=== PATIENT | male | born 1990 | race African-American/Black ===

== ENCOUNTER 2017-10-09 03:30 | Emergency (ER) | payer OTHER, SELFPAY ==
--- NOTE | 2017-10-09 04:29 | ER ---
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 I went to bed tonight and I thought the pain would get better but it didn't and now my arm is swollen. Swelling noted to right forearm. Pulses present. Transition of care: patient was not received from another setting of care. Onset of symptoms was October 08, 2017 at 15:00. Initial Sepsis Screen: Does the patient meet any 2 criteria? No. Patient's initial sepsis screen is negative. Does the patient have a suspected source of infection? No. Patient's initial sepsis screen is negative. Care prior to arrival: None. 03:45 Method Of Arrival: Ambulatory tl2 03:45 Acuity: BECKY 4 tl2 Triage Assessment: 03:47 General: Appears in no apparent distress. comfortable, Behavior is calm, cooperative, tl2 appropriate for age. Pain: Complains of pain in right forearm Pain radiates to right arm Pain currently is 4 out of 10 on a pain scale. Quality of pain is described as throbbing. Neuro: Level of Consciousness is awake, alert, obeys commands, Oriented to person, place, time, situation. Respiratory: Airway is patent Respiratory effort is even, unlabored, Respiratory pattern is regular, symmetrical. Musculoskeletal: Circulation, motion, and sensation intact. Capillary refill < 3 seconds, Range of motion: limited in right wrist Swelling present in right forearm. Musculoskeletal: Injury Description: Deformity sustained to right forearm. Historical: - Allergies: 03:47 No Known Allergies; tl2 - Home Meds: 03:47 None [Active]; tl2 - PMHx: 03:47 Anxiety; tl2 - Immunization history:: Adult Immunizations up to date, Last tetanus immunization: up to date. - Social history:: Smoking status: Patient uses tobacco products, smokes one-half pack cigarettes per day. - Family history:: not pertinent. Screenin:49 Abuse screen: Denies threats or abuse. Nutritional screening: No deficits noted. tl2 Tuberculosis screening: No symptoms or risk factors identified. Fall Risk None identified. Assessment: 03:49 General: see triage assessment. tl2 04:46 Reassessment: Patient appears in no apparent distress at this time. Patient and/or tl2 family updated on plan of care and expected duration. Pain level reassessed. Patient is alert, oriented x 3, equal unlabored respirations, skin warm/dry/pink. Pt verbalized understanding of discharge instructions, need for follow up and prescription usage. Vital Signs: 03:47 BP 129 / 85; Pulse 83; Resp 18; Pulse Ox 100% on R/A; Weight 68.04 kg; Height 6 ft. 0 tl2 in. (182.88 cm); Pain 4/10; 04:46 BP 115 / 74; Pulse 83; Resp 18; Pulse Ox 99% on R/A; tl2 03:47 Body Mass Index 20.34 (68.04 kg, 182.88 cm) tl2 ED Course: 03:34 Patient arrived in ED. 03:37 Car Ferreira MD is Attending Physician. ma2 03:44 Sasha Beach RN is Primary Nurse. tl2 03:46 Triage completed. tl2 03:47 Arm band placed on right wrist. tl2 03:49 Patient has correct armband on for positive identification. Bed in low position. Call tl2 light in reach. Side rails up X 1. Adult w/ patient. 04:31 X-ray completed. Portable x-ray completed in exam room. Patient tolerated procedure jw2 well. 04:36 XRAY Wrist RIGHT 3 view In Process Unspecified. EDMS 04:46 No provider procedures requiring assistance completed. Patient did not have IV access tl2 during this emergency room visit. comfort wrist splint. Administered Medications: No medications were administered Outcome: 04:29 Discharge ordered by . ma2 04:46 Discharged to home ambulatory, with friend. tl2 04:46 Condition: stable 04:46 Discharge instructions given to patient, Instructed on discharge instructions, follow up and referral plans. no driving heavy equipment, medication usage, Demonstrated understanding of instructions, follow-up care, medications, Prescriptions given X 1. 04:48 Patient left the ED. tl2 Signatures: Dispatcher [employer] EDMS Erum Bellamy Jenni jw2 Beach, Sasha, RN RN tl2 Alzahri, Mohammad, MD MD ma2
--- NOTE | 2017-10-09 04:29 | EDPHYS ---
Physician Documentation [facility] Name: Laurent Mahmood Age: 27 yrs Sex: Male : 1990 Arrival Date: 10/09/2017 Time: 03:34 Bed 13 Private MD: ED Physician Car Ferreira HPI: 10/09 03:59 This 27 yrs old Black Male presents to ER via Ambulatory with complaints of Arm Injury. ma2 03:59 The complaints affect the right wrist. Onset: The symptoms/episode began/occurred ma2 gradually, 1 day(s) ago. Associated signs and symptoms: Pertinent negatives: decreased range of motion, deformity, fever, pain, tingling, warmth. Severity of symptoms: At their worst the symptoms were moderate. has right wrist pain x 2 days no trauma. Historical: - Allergies: 03:47 No Known Allergies; tl2 - Home Meds: 03:47 None [Active]; tl2 - PMHx: 03:47 Anxiety; tl2 - Immunization history:: Adult Immunizations up to date, Last tetanus immunization: up to date. - Social history:: Smoking status: Patient uses tobacco products, smokes one-half pack cigarettes per day. - Family history:: not pertinent. ROS: 03:59 Constitutional: Negative for fever, chills, and weight loss, Eyes: Negative for injury, ma2 pain, redness, and discharge, ENT: Negative for injury, pain, and discharge, Cardiovascular: Negative for chest pain, palpitations, and edema, Respiratory: Negative for shortness of breath, cough, wheezing, and pleuritic chest pain, Abdomen/GI: Negative for abdominal pain, nausea, diarrhea, and constipation, Back: Negative for injury and pain, : Negative for injury, bleeding, discharge, and swelling, Skin: Negative for injury, rash, and discoloration, Neuro: Negative for headache, weakness, numbness, tingling, and seizure, Psych: Negative for depression, anxiety, suicide ideation, homicidal ideation, and hallucinations, Allergy/Immunology: Negative for hives, rash, and allergies, Endocrine: Negative for neck swelling, polydipsia, polyuria, polyphagia, and marked weight changes, Hematologic/Lymphatic: Negative for swollen nodes, abnormal bleeding, and unusual bruising. 03:59 MS/extremity: Positive for pain, Negative for acute changes, swelling, tingling. Exam: 03:59 Constitutional: This is a well developed, well nourished patient who is awake, alert, ma2 and in no acute distress. Head/Face: Normocephalic, atraumatic. Eyes: Pupils equal round and reactive to light, extra-ocular motions intact. Lids and lashes normal. Conjunctiva and sclera are non-icteric and not injected. Cornea within normal limits. Periorbital areas with no swelling, redness, or edema. Respiratory: Lungs have equal breath sounds bilaterally, clear to auscultation and percussion. No rales, rhonchi or wheezes noted. No increased work of breathing, no retractions or nasal flaring. Abdomen/GI: Soft, non-tender, with normal bowel sounds. No distension or tympany. No guarding or rebound. No evidence of tenderness throughout. Skin: Warm, dry with normal turgor. Normal color with no rashes, no lesions, and no evidence of cellulitis. Neuro: Awake and alert, GCS 15, oriented to person, place, time, and situation. Cranial nerves II-XII grossly intact. Motor strength 5/5 in all extremities. Sensory grossly intact. Cerebellar exam normal. Normal gait. 03:59 Musculoskeletal/extremity: Extremities: noted in the right arm: pain, right distal radius , ROM: intact in all extremities, Circulation is intact in all extremities. Sensation intact. Compartment Syndrome exam of affected extremity: is normal. Vital Signs: 03:47 BP 129 / 85; Pulse 83; Resp 18; Pulse Ox 100% on R/A; Weight 68.04 kg; Height 6 ft. 0 tl2 in. (182.88 cm); Pain 4/10; 04:46 BP 115 / 74; Pulse 83; Resp 18; Pulse Ox 99% on R/A; tl2 03:47 Body Mass Index 20.34 (68.04 kg, 182.88 cm) tl2 MDM: 03:37 Patient medically screened. ma2 03:59 Differential diagnosis: dislocation, closed fracture, contusion, abrasion, tendonitis. ma2 04:28 Data reviewed: vital signs, nurses notes, radiologic studies. Counseling: I had a ma2 detailed discussion with the patient and/or guardian regarding: the historical points, exam findings, and any diagnostic results supporting the discharge/admit diagnosis, radiology results, the need for outpatient follow up. 10/09 03:58 Order name: XRAY Wrist RIGHT 3 view ma2 10/09 04:48 Order name: Wrist Splint; Complete Time: 04:48 tl2 Administered Medications: No medications were administered Disposition: 10/09/17 04:29 Discharged to Home. Impression: Muscle spasm. - Condition is Stable. - Prescriptions for Tylenol- Codeine #3 300-30 mg Oral Tablet - take 2 tablet by ORAL route every 6 hours As needed; 30 tablet. - Work release form, Medication Reconciliation Form, Thank You Letter, Antibiotic Education, Prescription Opioid Use form. - Follow up: Private Physician; When: Tomorrow; Reason: Continuance of care. - Problem is new. - Symptoms are unchanged. Signatures: Dispatcher [employer] Sasha Plaza RN RN tl2 Car Ferreira MD MD ma2
--- NOTE | 2017-10-09 11:40 | RAD REPORT ---
EXAM DESCRIPTION: RAD - Wrist Right 3 View - 10/09/2017 4:36 am CLINICAL HISTORY: Pain and swelling. COMPARISON: None. FINDINGS: No fracture or dislocation seen. No foreign body or other soft tissue abnormality. IMPRESSION: Negative examination.
== END 2017-10-09 04:48 | disposition home or self-care (01) ==
LOC: ER 03:30
DX: M62.838 Other muscle spasm (principal)
CPT/HCPCS: 99283

== ENCOUNTER 2019-07-31 14:33 | Emergency (ER) | payer SELFPAY ==
[2019-07-31 16:14] LABS: Absolute Lymphocytes (CBC) 0.8 K/uL (0.7-4.9); Basophils % 0.8 % (0-1.3); Hematocrit 45.9 % (39.6-49.0); Lymphocytes % 10.1 % (15.3-44.8); MPV 10.5 fL (7.6-11.3); RBC Red Blood Cell Count 5.31 M/uL (4.33-5.43)
[2019-07-31] MEDS ORDERED: NA CHLORIDE 0.9% 1,000 ML ONE (16:27)
[2019-07-31 16:30] LABS: Urine Blood NEGATIVE (NEG); Urine Glucose NEGATIVE (NEG); Urine Protein NEGATIVE (NEG); Urine Specific Gravity 1.015 (1.005-1.030)
[2019-07-31 16:36] LABS: ALT/SGPT 38 U/L (12-78); AST/SGOT 27 U/L (15-37); Alkaline Phosphatase 62 U/L (45-117); BUN Blood Urea Nitrogen 9 mg/dL (7-18); Bicarbonate 30 mmol/L (21-32); Bilirubin Direct 0.1 mg/dL (0-0.2); Bilirubin Total 0.4 mg/dL (0.2-1.0); Glucose Level 88 mg/dL (74-106); Lipase 121 U/L (73-393); Potassium 3.9 mmol/L (3.5-5.1); Protein, Total 8.6 g/dL (6.4-8.2); Sodium Level 140 mmol/L (136-145)
--- NOTE | 2019-07-31 18:01 | RAD REPORT ---
EXAM DESCRIPTION: CT - Abdomen Pelvis W Contrast - 07/31/2019 5:41 pm CLINICAL HISTORY: Abdominal pain. COMPARISON: None. TECHNIQUE: Computed axial tomography of the abdomen and pelvis was obtained. 100 cc Isovue-300 is ad ministered intravenously. Oral contrast was given. All CT scans are performed using dose optimization technique as appropriate and may include automated exposure control or mA/KV adjustment according to patient size. FINDINGS: The liver, spleen, pancreas, and adrenal appear unremarkable. Mild cortical thinning involves the kid neys perhaps secondary to prior inflammation Patient reports a history of an appendectomy. There is no evidence of diverticulitis The wall of portions of the right colon appear mildly thickened. Moderate amount stool within the col on IMPRESSION: The wall of portions of the right colon appear mildly thickened. This may be secondary t o incomplete distention or mild colitis
--- NOTE | 2019-07-31 18:14 | EDPHYS ---
Physician Documentation [facility] Name: Laurent Mahmood Jr Age: 29 yrs Sex: Male : 1990 Arrival Date: 07/31/2019 Time: 14:37 Bed 27 Private MD: ED Physician Anthony Cota HPI: 07/31 17:27 This 29 yrs old Black Male presents to ER via EMS with complaints of right groin and odilon rlq abdominal pain. 17:27 The patient presents with abdominal pain right lower quadrant. Onset: The odilon symptoms/episode began/occurred 2 day(s) ago. The symptoms radiate to Associated signs and symptoms: none. The symptoms are described as crampy. Modifying factors: The symptoms are alleviated by remaining still, the symptoms are aggravated by movement, pressure, touching the area. Severity of pain: At its worst the pain was mild moderate in the emergency department the pain is unchanged. The patient has not experienced similar symptoms in the past. Historical: - Allergies: 14:41 No Known Allergies; mg2 - Home Meds: 14:41 None [Active]; mg2 - PMHx: 14:41 Anxiety; mg2 - PSHx: 14:41 Appendectomy; mg2 - Immunization history:: Flu vaccine is not up to date. - Coronavirus screen:: The patient has NOT traveled to [place] in the past 14 days. Proceed with normal triage process as indicated. - Social history:: Smoking status: Patient reports the use of cigarette tobacco products, denies chronic smoking, but will smoke occasionally, Patient uses alcohol, occasionally. Patient/guardian denies using street drugs, IV drugs. - Family history:: not pertinent. - Ebola Screening: : No symptoms or risks identified at this time. ROS: 17:27 Constitutional: Negative for fever, chills, and weight loss, Eyes: Negative for injury, odilon pain, redness, and discharge, ENT: Negative for injury, pain, and discharge, Neck: Negative for injury, pain, and swelling, Cardiovascular: Negative for chest pain, palpitations, and edema, Respiratory: Negative for shortness of breath, cough, wheezing, and pleuritic chest pain, Back: Negative for injury and pain, : Negative for injury, bleeding, discharge, and swelling, MS/Extremity: Negative for injury and deformity, Skin: Negative for injury, rash, and discoloration, Neuro: Negative for headache, weakness, numbness, tingling, and seizure, Psych: Negative for depression, anxiety, suicide ideation, homicidal ideation, and hallucinations, Allergy/Immunology: Negative for hives, rash, and allergies, Endocrine: Negative for neck swelling, polydipsia, polyuria, polyphagia, and marked weight changes, Hematologic/Lymphatic: Negative for swollen nodes, abnormal bleeding, and unusual bruising. 17:27 Abdomen/GI: Positive for abdominal pain, of the right lower quadrant. Exam: 17:27 Constitutional: This is a well developed, well nourished patient who is awake, alert, odilon and in no acute distress. Head/Face: Normocephalic, atraumatic. Eyes: Pupils equal round and reactive to light, extra-ocular motions intact. Lids and lashes normal. Conjunctiva and sclera are non-icteric and not injected. Cornea within normal limits. Periorbital areas with no swelling, redness, or edema. ENT: Nares patent. No nasal discharge, no septal abnormalities noted. Tympanic membranes are normal and external auditory canals are clear. Oropharynx with no redness, swelling, or masses, exudates, or evidence of obstruction, uvula midline. Mucous membranes moist. Neck: Trachea midline, no thyromegaly or masses palpated, and no cervical lymphadenopathy. Supple, full range of motion without nuchal rigidity, or vertebral point tenderness. No Meningismus. Chest/axilla: Normal chest wall appearance and motion. Nontender with no deformity. No lesions are appreciated. Cardiovascular: Regular rate and rhythm with a normal S1 and S2. No gallops, murmurs, or rubs. Normal PMI, no JVD. No pulse deficits. Respiratory: Lungs have equal breath sounds bilaterally, clear to auscultation and percussion. No rales, rhonchi or wheezes noted. No increased work of breathing, no retractions or nasal flaring. Back: No spinal tenderness. No costovertebral tenderness. Full range of motion. Male : Normal genitalia with no discharge or lesions. Skin: Warm, dry with normal turgor. Normal color with no rashes, no lesions, and no evidence of cellulitis. MS/ Extremity: Pulses equal, no cyanosis. Neurovascular intact. Full, normal range of motion. Neuro: Awake and alert, GCS 15, oriented to person, place, time, and situation. Cranial nerves II-XII grossly intact. Motor strength 5/5 in all extremities. Sensory grossly intact. Cerebellar exam normal. Normal gait. Psych: Awake, alert, with orientation to person, place and time. Behavior, mood, and affect are within normal limits. 17:27 Abdomen/GI: Inspection: abdomen appears normal, Bowel sounds: normal, Palpation: mild abdominal tenderness, in the right lower quadrant, Liver: no appreciated palpable abnormalities, Hernia: not appreciated. 17:27 : CVA tenderness, is absent, Male external genitalia: Patient is not circumisioned. Bladder: is normal, Sexual behavior: the patient is sexually active, and reports a single partner. 17:33 Musculoskeletal/extremity: ROM: limited active range of motion due to pain, limited odilon passive range of motion due to pain, Circulation is intact in all extremities. Sensation intact. Compartment Syndrome exam of affected extremity: is normal. DVT Exam: no swelling, negative Homans' sign noted on exam, no appreciated bluish discoloration, no erythema, no increased warmth, pain, tenderness. Vital Signs: 14:39 BP 135 / 82; Pulse 86; Resp 18; Temp 99.3; Pulse Ox 100% on R/A; Weight 68.04 kg; mg2 Height 6 ft. 0 in. (182.88 cm); 15:30 BP 126 / 70; Pulse 78; Resp 14; Temp 99.0(O); Pulse Ox 100% on R/A; Pain 2/10; ls4 16:30 BP 127 / 70; Pulse 82; Resp 14; Pulse Ox 100% on R/A; Pain 0/10; ls4 17:30 BP 122 / 70; Pulse 84; Resp 14; Pulse Ox 99% on R/A; Pain 0/10; ls4 18:41 BP 125 / 78; Pulse 80; Resp 18; Temp 98; Pulse Ox 100% on R/A; mg2 14:39 Body Mass Index 20.34 (68.04 kg, 182.88 cm) mg2 MDM: 14:44 Patient medically screened. [facility] 17:33 Data reviewed: vital signs, nurses notes, lab test result(s), EKG, radiologic studies, [facility] CT scan, plain films. 07/31 15:55 Order name: Basic Metabolic Panel [facility] 02/11 15:55 Order name: CBC with Diff [facility] 07/31 15:55 Order name: Creatinine for Radiology [facility] 07/31 15:55 Order name: Hepatic Function [facility] 07/31 15:55 Order name: Lipase [facility] 07/31 16:16 Order name: Urine Dipstick--Ancillary (enter results) 07/31 15:55 Order name: CT Abd/Pelvis - PO and IV Contrast [facility] 07/31 16:18 Order name: CBC with Automated Diff; Complete Time: 16:46 [facility] 07/31 16:31 Order name: Urine Dipstick-Ancillary; Complete Time: 16:46 [facility] 07/31 16:34 Order name: Creatinine (Radiology Only); Complete Time: 16:46 [facility] 07/31 16:36 Order name: Basic Metabolic Panel; Complete Time: 16:46 [facility] 07/31 16:36 Order name: Liver (Hepatic) Function; Complete Time: 16:46 [facility] 07/31 16:36 Order name: Lipase; Complete Time: 16:46 [facility] 07/31 18:16 Order name: CT [facility] 07/31 15:55 Order name: IV Saline Lock; Complete Time: 16:55 [facility] 07/31 15:55 Order name: Labs collected and sent; Complete Time: 16:55 [facility] 07/31 15:55 Order name: Urine Dipstick-Ancillary (obtain specimen); Complete Time: 16:21 [facility] Administered Medications: 16:04 Drug: NS 0.9% 1000 ml Route: IV; Rate: 1 bolus; Site: right antecubital; ls4 18:41 Follow up: Response: No adverse reaction; IV Status: Completed infusion; IV Intake: mg2 1000ml 18:40 Drug: Cipro 500 mg Route: PO; mg2 18:40 Follow up: Response: No adverse reaction; Medication administered at discharge. mg2 18:40 Drug: Flagyl 500 mg Route: PO; mg2 18:40 Follow up: Response: No adverse reaction; Medication administered at discharge. mg2 Disposition: 07/31/19 18:14 Discharged to Home. Impression: Abdominal tenderness - mild colitis. - Condition is Stable. - Discharge Instructions: Abdominal Pain, Adult, Abdominal Pain, Adult, [id number], Lymphadenopathy, Colitis. - Prescriptions for Bentyl 20 mg Oral Tablet - take 1 tablet by ORAL route every 6 hours As needed; 20 tablet. Ibuprofen 600 mg Oral Tablet - take 1 tablet by ORAL route every 8 hours As needed take with food; 20 tablet. Flagyl 500 mg Oral Tablet - take 1 tablet by ORAL route every 8 hours for 10 days; 21 tablet. Cipro 500 mg Oral Tablet - take 1 tablet by ORAL route every 12 hours for 7 days; 14 tablet. - Medication Reconciliation Form, Thank You Letter, Antibiotic Education, Prescription Opioid Use form. - Follow up: Private Physician; When: 2 - 3 days; Reason: Recheck today's complaints, Continuance of care, Re-evaluation by your physician. Follow up: Tree Zamarripa MD; When: 2 - 3 days; Reason: Recheck today's complaints, Re-evaluation by your physician. - Problem is new. - Symptoms have improved. Signatures: Dispatcher [employer] EDNE Anthony Cota MD MD cha Gardose, Michele RN RN mg2 Glendy Davis RN RN ls4 Corrections: (The following items were deleted from the chart) 18:15 18:14 07/31/2019 18:14 Discharged to Home. Impression: Abdominal tenderness - mild odilon colitis. Condition is Stable. Discharge Instructions: Abdominal Pain, Adult, Abdominal Pain, Adult, [id number], Lymphadenopathy. Prescriptions for Bentyl 20 mg Oral Tablet - take 1 tablet by ORAL route every 6 hours As needed; 20 tablet, Ibuprofen 600 mg Oral Tablet - take 1 tablet by ORAL route every 6 hours As needed take with food; 20 tablet. and Forms are Medication Reconciliation Form, Thank You Letter, Antibiotic Education, Prescription Opioid Use. Follow up: Private Physician; When: 2 - 3 days; Reason: Recheck today's complaints, Continuance of care, Re-evaluation by your physician. Problem is new. Symptoms have improved. odilon 18:42 18:15 07/31/2019 18:14 Discharged to Home. Impression: Abdominal tenderness - mild mg2 colitis. Condition is Stable. Discharge Instructions: Abdominal Pain, Adult, Abdominal Pain, Adult, [id number], Lymphadenopathy, Colitis. Prescriptions for Bentyl 20 mg Oral Tablet - take 1 tablet by ORAL route every 6 hours As needed; 20 tablet, Flagyl 500 mg Oral Tablet - take 1 tablet by ORAL route every 8 hours for 10 days; 21 tablet, Cipro 500 mg Oral Tablet - take 1 tablet by ORAL route every 12 hours for 7 days; 14 tablet, Ibuprofen 600 mg Oral Tablet - take 1 tablet by ORAL route every 8 hours As needed take with food; 20 tablet. and Forms are Medication Reconciliation Form, Thank You Letter, Antibiotic Education, Prescription Opioid Use. Follow up: Private Physician; When: 2 - 3 days; Reason: Recheck today's complaints, Continuance of care, Re-evaluation by your physician. Follow up: Tree Zamarripa; When: 2 - 3 days; Reason: Recheck today's complaints, Re-evaluation by your physician. Problem is new. Symptoms have improved. odilon
--- NOTE | 2019-07-31 18:14 | ER ---
Nurse's Notes [facility] Name: Laurent Mahmood Jr Age: 29 yrs Sex: Male : 1990 Arrival Date: 07/31/2019 Time: 14:37 Bed 27 Private MD: Diagnosis: Abdominal tenderness-mild colitis Presentation: 07/31 14:37 Presenting complaint: EMS states: he has RLQ pain for the last 2 days. denies n/v. mg2 Transition of care: patient was not received from another setting of care. Onset of symptoms was July 30, 2019. Risk Assessment: Do you want to hurt yourself or someone else?. Initial Sepsis Screen: Does the patient meet any 2 criteria? No. Patient's initial sepsis screen is negative. Does the patient have a suspected source of infection? No. Patient's initial sepsis screen is negative. Care prior to arrival: None. 14:37 Method Of Arrival: EMS: [email or web address] 14:37 Acuity: BECKY 3 mg2 Triage Assessment: 14:30 General: Appears in no apparent distress. comfortable. Neuro: No deficits noted. ls4 14:30 General: Appears. General:. Cardiovascular: No deficits noted. Respiratory: No deficits ls4 noted. GI: Abdomen is flat, non-distended, Bowel sounds present X 4 quads. Abd is soft and non tender X 4 quads. : No deficits noted. Derm: No deficits noted. Musculoskeletal: No deficits noted. Historical: - Allergies: 14:41 No Known Allergies; mg2 - Home Meds: 14:41 None [Active]; mg2 - PMHx: 14:41 Anxiety; mg2 - PSHx: 14:41 Appendectomy; mg2 - Immunization history:: Flu vaccine is not up to date. - Coronavirus screen:: The patient has NOT traveled to [place] in the past 14 days. Proceed with normal triage process as indicated. - Social history:: Smoking status: Patient reports the use of cigarette tobacco products, denies chronic smoking, but will smoke occasionally, Patient uses alcohol, occasionally. Patient/guardian denies using street drugs, IV drugs. - Family history:: not pertinent. - Ebola Screening: : No symptoms or risks identified at this time. Screenin:49 Abuse screen: Denies threats or abuse. Denies injuries from another. Nutritional ls4 screening: No deficits noted. Tuberculosis screening: No symptoms or risk factors identified. Fall Risk None identified. Assessment: 14:47 General: Appears in no apparent distress. comfortable, Behavior is calm, cooperative, ls4 appropriate for age. Pain: Complains of pain in right lower quadrant Pain currently is 0 out of 10 on a pain scale. Aggravated by repositioning. Neuro: No deficits noted. Cardiovascular: No deficits noted. Respiratory: No deficits noted. GI: Abdomen is flat, non-distended, Bowel sounds present X 4 quads. Abd is soft and non tender. : Denies burning with urination, cramping discharge, inability to void, incontinence, pain urinary frequency, urgency. Derm: Skin is pink, warm \T\ dry. 15:30 Reassessment: Patient appears in no apparent distress at this time. Patient and/or ls4 family updated on plan of care and expected duration. Pain level reassessed. Patient is alert, oriented x 3, equal unlabored respirations, skin warm/dry/pink. 16:30 Reassessment: Patient appears in no apparent distress at this time. Patient and/or ls4 family updated on plan of care and expected duration. Pain level reassessed. Patient is alert, oriented x 3, equal unlabored respirations, skin warm/dry/pink. 17:30 Reassessment: Patient appears in no apparent distress at this time. Patient and/or ls4 family updated on plan of care and expected duration. Pain level reassessed. Patient is alert, oriented x 3, equal unlabored respirations, skin warm/dry/pink. Vital Signs: 14:39 BP 135 / 82; Pulse 86; Resp 18; Temp 99.3; Pulse Ox 100% on R/A; Weight 68.04 kg; mg2 Height 6 ft. 0 in. (182.88 cm); 15:30 BP 126 / 70; Pulse 78; Resp 14; Temp 99.0(O); Pulse Ox 100% on R/A; Pain 2/10; ls4 16:30 BP 127 / 70; Pulse 82; Resp 14; Pulse Ox 100% on R/A; Pain 0/10; ls4 17:30 BP 122 / 70; Pulse 84; Resp 14; Pulse Ox 99% on R/A; Pain 0/10; ls4 18:41 BP 125 / 78; Pulse 80; Resp 18; Temp 98; Pulse Ox 100% on R/A; mg2 14:39 Body Mass Index 20.34 (68.04 kg, 182.88 cm) mg2 ED Course: 14:37 Patient arrived in ED. mg2 14:39 Triage completed. mg2 14:40 Arm band placed on. mg2 14:40 Patient has correct armband on for positive identification. Bed in low position. Call ls4 light in reach. Side rails up X 1. 14:44 Anthony Cota MD is Attending Physician. odilon 14:47 Glendy Davis, ALESIA is Primary Nurse. ls4 14:50 No provider procedures requiring assistance completed. ls4 16:04 Oral contrast given. vm2 16:05 Initial lab(s) drawn, by ar, sent to lab. Inserted saline lock: 20 gauge in right tm3 antecubital area, using aseptic technique. 16:20 Urine Dipstick--Ancillary (enter results) Sent. ls4 18:15 Tree Zamarripa MD is Referral Physician. odilon 18:42 IV discontinued, intact, bleeding controlled, No redness/swelling at site. Pressure mg2 dressing applied. Administered Medications: 16:04 Drug: NS 0.9% 1000 ml Route: IV; Rate: 1 bolus; Site: right antecubital; ls4 18:41 Follow up: Response: No adverse reaction; IV Status: Completed infusion; IV Intake: mg2 1000ml 18:40 Drug: Cipro 500 mg Route: PO; mg2 18:40 Follow up: Response: No adverse reaction; Medication administered at discharge. mg2 18:40 Drug: Flagyl 500 mg Route: PO; mg2 18:40 Follow up: Response: No adverse reaction; Medication administered at discharge. mg2 Intake: 18:41 IV: 1000ml; Total: 1000ml. mg2 Outcome: 18:14 Discharge ordered by . odilon 18:42 Discharged to home ambulatory. mg2 18:42 Condition: stable 18:42 Discharge instructions given to patient, Instructed on discharge instructions, follow up and referral plans. medication usage, Demonstrated understanding of instructions, follow-up care, medications, Prescriptions given X 4. 18:42 Patient left the ED. mg2 Signatures: Roel Fallon tm3 Anthony Cota MD MD cha McGuire, Victoria 2 Ronan Carlson RN RN [facility] Glendy Davis RN RN ls4
[2019-07-31] MEDS ORDERED: CIPROFLOXACIN HCL 500 MG TAB ONE (18:26)
[2019-07-31] MEDS ORDERED: metroNIDAZOLE 500 MG TABLET ONE (18:26)
[2019-08-02 09:54] VITALS: BP 125/78; TEMP 98; O2SAT 100
== END 2019-07-31 18:42 | disposition home or self-care (01) ==
LOC: ER 14:33
DX: K52.9 Noninfective gastroenteritis and colitis, unspecified (principal)
CPT/HCPCS: 36415; 74177; 80048; 80076; 81003; 83690; 85025; 96360; 96361; 99284; J7030; Q9967

== ENCOUNTER 2019-11-04 15:37 | Emergency (ER) | payer SELFPAY ==
--- NOTE | 2019-11-04 16:44 | RAD REPORT ---
EXAM DESCRIPTION: RAD - Tib Fib Right - 11/04/2019 4:37 pm CLINICAL HISTORY: Right leg pain FINDINGS: No fracture is seen
--- NOTE | 2019-11-04 16:56 | ER ---
Nurse's Notes [facility] Name: Laurent Mahmood Jr Age: 29 yrs Sex: Male : 1990 Arrival Date: 11/04/2019 Time: 15:38 Bed 7 Private MD: Diagnosis: Laceration without foreign body, right lower leg;Contusion of right lower leg Presentation: 11/03 15:46 Chief complaint: Patient states: Lac on R lower mclean with a chainsaw on Tuesday. ca1 Coronavirus screen: Proceed with normal triage. Patient denies a cough. Patient denies shortness of breath or difficulty breathing. Patient denies measured and/or subjective temperature greater than 100.4F prior to today's visit. Patient denies travel on a cruise ship or to a country the [facility] currently lists as an affected area. Patient denies contact with known and/or suspected case of COVID-19. Ebola Screen: Patient negative for fever greater than or equal to 101.5 degrees Fahrenheit, and additional compatible Ebola Virus Disease symptoms Patient denies exposure to infectious person. Patient denies travel to an Ebola-affected area in the 21 days before illness onset. No symptoms or risks identified at this time. Initial Sepsis Screen: Does the patient meet any 2 criteria? No. Patient's initial sepsis screen is negative. Does the patient have a suspected source of infection? No. Patient's initial sepsis screen is negative. Risk Assessment: Do you want to hurt yourself or someone else? Patient reports no desire to harm self or others. Onset of symptoms was November 04, 2019. 15:46 Method Of Arrival: Ambulatory ca1 15:46 Acuity: BECKY 4 ca1 Historical: - Allergies: 15:49 No Known Allergies; ca1 - Home Meds: 15:49 None [Active]; ca1 - PMHx: 15:49 Anxiety; ca1 - PSHx: 15:49 Appendectomy; ca1 - Immunization history:: Adult Immunizations not up to date, Last tetanus immunization: unknown. - Social history:: Smoking status: Patient reports the use of cigarette tobacco products, smokes one-half pack cigarettes per day. - Family history:: not pertinent. - Hospitalizations: : No recent hospitalization is reported. Screenin:50 Abuse screen: Denies threats or abuse. Denies injuries from another. Nutritional ca1 screening: No deficits noted. Tuberculosis screening: No symptoms or risk factors identified. Fall Risk None identified. Assessment: 15:50 General: Appears in no apparent distress. comfortable, Behavior is calm, cooperative, ca1 appropriate for age. Pain: Complains of pain in right mclean Pain currently is 4 out of 10 on a pain scale. Neuro: Level of Consciousness is awake, alert, obeys commands, Oriented to person, place, time, situation, Appropriate for age. Derm: Skin is healthy with good turgor, Skin is pink, warm \T\ dry. Musculoskeletal: Circulation, motion, and sensation intact. Capillary refill < 3 seconds. Injury Description: Laceration sustained to right mclean is contaminated, superficial, 0.5 to 2.5 cm long, not bleeding. 16:55 Reassessment: Patient appears in no apparent distress at this time. Patient and/or ca1 family updated on plan of care and expected duration. Pain level reassessed. Patient is alert, oriented x 3, equal unlabored respirations, skin warm/dry/pink. Vital Signs: 15:46 BP 123 / 89; Pulse 105; Resp 17 S; Temp 98.6(TE); Pulse Ox 96% on R/A; Weight 70.31 kg ca1 (R); Height 5 ft. 9 in. (175.26 cm) (R); 16:55 BP 105 / 78; Pulse 95; Resp 16 S; Pulse Ox 98% on R/A; ca1 15:46 Body Mass Index 22.89 (70.31 kg, 175.26 cm) ca1 ED Course: 15:38 Patient arrived in ED. as 15:41 Migue Ferrer MD is Attending Physician. rn 15:46 Ale Quevedo RN is Primary Nurse. ca1 15:48 Triage completed. ca1 15:49 Arm band placed on right wrist. ca1 15:50 Patient has correct armband on for positive identification. Bed in low position. Call ca1 light in reach. Side rails up X 1. Pulse ox on. NIBP on. 16:37 XRAY Tib Fib RIGHT In Process Unspecified. EDMS 17:17 No provider procedures requiring assistance completed. Patient did not have IV access ca1 during this emergency room visit. Administered Medications: No medications were administered Outcome: 16:56 Discharge ordered by . rn 17:17 Discharged to home ambulatory. ca1 17:17 Condition: stable 17:17 Discharge instructions given to patient, Instructed on discharge instructions, follow up and referral plans. wound care, Demonstrated understanding of instructions, follow-up care, wound care. 17:17 Patient left the ED. ca1 Signatures: Dispatcher [employer] Mayra Bryant Roman, MD MD rn Acob, ALESIA Aguilera RN ca1 Corrections: (The following items were deleted from the chart) 15:50 15:46 BP 118 / 99; Pulse 105bpm; Resp 17bpm; Spontaneous; Pulse Ox 96% RA; Temp 98.6F ca1 Temporal; 70.31 kg Reported; Height 5 ft. 9 in. Reported; BMI: 22.8; ca1
--- NOTE | 2019-11-04 16:56 | EDPHYS ---
Physician Documentation [facility] Name: Laurent Mahmood Jr Age: 29 yrs Sex: Male : 1990 Arrival Date: 11/04/2019 Time: 15:38 Bed 7 Private MD: ED Physician Migue Ferrer HPI: 11/03 16:10 This 29 yrs old Black Male presents to ER via Ambulatory with complaints of Wound Check rn - lac to leg 10/29. 16:10 Patient presents to ED for recheck of: laceration. The affected area is on the right rn leg. The patient has not experienced similar symptoms in the past. Reports cut himself 5 days ago accidentally with chainsaw, has been keeping it clean but having pain when touches area and walking since the injury. No redness, no fever. Did not seek care when happened. . Historical: - Allergies: 15:49 No Known Allergies; ca1 - Home Meds: 15:49 None [Active]; ca1 - PMHx: 15:49 Anxiety; ca1 - PSHx: 15:49 Appendectomy; ca1 - Immunization history:: Adult Immunizations not up to date, Last tetanus immunization: unknown. - Social history:: Smoking status: Patient reports the use of cigarette tobacco products, smokes one-half pack cigarettes per day. - Family history:: not pertinent. - Hospitalizations: : No recent hospitalization is reported. ROS: 16:10 Constitutional: Negative for fever, chills, and weight loss, MS/Extremity: + laceration rn and contusion with chainsaw to RLE Neuro: Negative for headache and seizure Exam: 16:10 Constitutional: This is a well developed, well nourished patient who is awake, alert, rn and in no acute distress. Ambulatory to room without difficulty or assistance. MS/ Extremity: Pulses equal, no cyanosis. Neurovascular intact. Full, normal range of motion. Superficial 2cm jagged but healing laceration to lower pre-tibial region, no active bleeding, no surrounding erythema or drainage. Vital Signs: 15:46 BP 123 / 89; Pulse 105; Resp 17 S; Temp 98.6(TE); Pulse Ox 96% on R/A; Weight 70.31 kg ca1 (R); Height 5 ft. 9 in. (175.26 cm) (R); 16:55 BP 105 / 78; Pulse 95; Resp 16 S; Pulse Ox 98% on R/A; ca1 15:46 Body Mass Index 22.89 (70.31 kg, 175.26 cm) ca1 MDM: 15:41 Patient medically screened. rn 16:55 Differential diagnosis: laceration, contusion, tibial fracture. Data reviewed: vital rn signs, nurses notes, radiologic studies, plain films, and as a result, I will discharge patient. Test interpretation: by ED physician or midlevel provider: plain radiologic studies, Xray right tib/fib neg for fracture or foreign body. Counseling: I had a detailed discussion with the patient and/or guardian regarding: the historical points, exam findings, and any diagnostic results supporting the discharge/admit diagnosis, radiology results, the need for outpatient follow up, to return to the emergency department if symptoms worsen or persist or if there are any questions or concerns that arise at home. Special discussion: I discussed with the patient/guardian in detail that at this point there is no indication for admission to the hospital. It is understood, however, that if the symptoms persist or worsen the patient needs to return immediately for re-evaluation. ED course: Wound too old to close, xray neg for fracture/foreign body, will dc home with local wound care. . 11/03 16:10 Order name: XRAY Tib Fib RIGHT; Complete Time: 16:54 rn Administered Medications: No medications were administered Disposition: 11/04/19 16:56 Discharged to Home. Impression: Laceration without foreign body, right lower leg, Contusion of right lower leg. - Condition is Stable. - Discharge Instructions: Contusion, Laceration Care, Adult. - Medication Reconciliation Form, Thank You Letter, Antibiotic Education, Prescription Opioid Use form. - Follow up: Private Physician; When: As needed; Reason: Recheck today's complaints, Re-evaluation by your physician. - Problem is new. - Symptoms are unchanged. Signatures: Dispatcher [employer] EDMS Migue Ferrer MD MD rn Acob, Cheryl, RN RN ca1 Corrections: (The following items were deleted from the chart) 17: 16:56 11/04/2019 16:56 Discharged to Home. Impression: Laceration without foreign body, ca1 right lower leg; Contusion of right lower leg. Condition is Stable. Forms are Medication Reconciliation Form, Thank You Letter, Antibiotic Education, Prescription Opioid Use. Follow up: Private Physician; When: As needed; Reason: Recheck today's complaints, Re-evaluation by your physician. Problem is new. Symptoms are unchanged. rn
[2019-11-04 17:28] VITALS: TEMP 98.6
[2019-11-04 17:30] VITALS: BP 105/78; O2SAT 98
== END 2019-11-04 17:17 | disposition home or self-care (01) ==
LOC: ER 15:37
DX: S81.811D Laceration without foreign body, right lower leg, subsequent encounter (principal); S80.11XA Contusion of right lower leg, initial encounter; F17.210 Nicotine dependence, cigarettes, uncomplicated
CPT/HCPCS: 99283

== ENCOUNTER 2020-05-04 16:40 | Emergency (ER) | payer SELFPAY ==
[2020-05-04] MEDS ORDERED: HYDROCODONE/APAP 5/325 MG TAB ONE (17:28)
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
--- NOTE | 2020-05-04 19:13 | RAD REPORT ---
EXAM DESCRIPTION: RAD - Finger-Thumb Right - 05/04/2020 5:30 pm CLINICAL HISTORY: thumb pain;Pain, trauma COMPARISON: No comparisons FINDINGS: A left thumb three view examination shows transverse fracture of the proximal shaft of the distal first phalanx. There is an additional sagittal fracture line that extends from the transverse fracture line proximally to the articular surface. No distraction or angulation deformity. The IP edith int is otherwise unremarkable. The first proximal phalanx and the first metacarpal are intact. No air or foreign body in the soft tissues. IMPRESSION: Right first distal phalanx fracture without distraction or angulation.
[2020-05-04 21:07] VITALS: BP 123/84; TEMP 98.7; O2SAT 97
== END 2020-05-04 18:37 | disposition home or self-care (01) ==
LOC: ER 16:40
DX: S02.2XXA Fracture of nasal bones, initial encounter for closed fracture (principal); S62.524A Nondisplaced fracture of distal phalanx of right thumb, initial encounter for closed fracture; S02.5XXA Fracture of tooth (traumatic), initial encounter for closed fracture; Y04.2XXA Assault by strike against or bumped into by another person, initial encounter; Y93.9 Activity, unspecified; Y92.9 Unspecified place or not applicable; F17.210 Nicotine dependence, cigarettes, uncomplicated
CPT/HCPCS: 70486; 76377; 99284

== ENCOUNTER 2021-02-15 04:56 | Emergency (ER) | payer SELFPAY ==
--- NOTE | 2021-02-15 09:03 | ER ---
Nurse's Notes [facility] Name: Laurent Mahmood Jr Age: 30 yrs Sex: Male : 1990 Arrival Date: 02/15/2021 Time: 04:58 Bed 19 Private MD: Diagnosis: Presentation: 02/15 05:03 Chief complaint: Patient states: Headache Right side x 2 weeks. Coronavirus screen: da3 Client denies travel out of the [place] in the last 14 days. Ebola Screen: No symptoms or risks identified at this time. Risk Assessment: Do you want to hurt yourself or someone else?. 05:03 Method Of Arrival: Ambulatory da3 05:03 Acuity: BECKY 3 da3 Triage Assessment: 05:06 General: Appears in no apparent distress. comfortable, Behavior is calm, cooperative. da3 Pain: Pain currently is 7 out of 10 on a pain scale. Historical: - Allergies: 05:05 No Known Allergies; da3 - Immunization history:: Client reports receiving the 2nd dose of the Covid vaccine. Vital Signs: 05:06 BP 118 / 77; Pulse 87; Resp 16; Temp 97.5; Pulse Ox 100% on R/A; da3 ED Course: 04:58 Patient arrived in ED. 05:05 Triage completed. da3 08:59 Lydia Montesinos, RN is Primary Nurse. tr6 Administered Medications: No medications were administered Outcome: 09:02 Patient left the ED. tr6 Signatures: Lydia Montesinos RN RN tr6 [place] Alirio Tucker RN RN 3
[2021-02-15 09:09] VITALS: BP 118/77; TEMP 97.5; O2SAT 100
== END 2021-02-15 09:02 | disposition left against medical advice (07) ==
LOC: ER 04:56
DX: Z53.21 Procedure and treatment not carried out due to patient leaving prior to being seen by health care provider (principal)
CPT/HCPCS: 99281

== ENCOUNTER 2021-04-17 11:25 | Emergency (ER) | payer SELFPAY ==
--- NOTE | 2021-04-17 12:01 | RAD REPORT ---
EXAM DESCRIPTION: CT - CTHCSPWOC - 04/17/2021 11:46 am CLINICAL HISTORY: Trauma, head and neck injury. PAIN COMPARISON: No comparisons TECHNIQUE: Axial 5 mm thick images of the head were obtained. Axial 2 mm thick images of the cervical spine were obtained with sagittal and coronal reconstruction images generated and reviewed. All CT scans are performed using dose optimization technique as appropriate and may include automated exposure control or mA/KV adjustment according to patient size. FINDINGS: CT HEAD WITHOUT CONTRAST: No acute hemorrhage, hydrocephalus or extra-axial collection is identified.No areas of brain edema or midline shift. Trace paranasal sinus thickening.The calvarium is intact. Cavum septum pellucidum. CT CERVICAL SPINE WITHOUT CONTRAST: No fracture or subluxation.No prevertebral soft tissues swelling is identified. IMPRESSION: No acute intracranial or cervical spine findings.Reference facial CT for description of known facial fractures.
--- NOTE | 2021-04-17 12:03 | RAD REPORT ---
EXAM DESCRIPTION: CT - CTFB CLINICAL HISTORY: FACIAL PAIN COMPARISON: Facial Bones W/ Mpr dated 05/04/2020 TECHNIQUE: Axial 2 mm thick images of the face were obtained with sagittal and coronal reconstructio n images. All CT scans are performed using dose optimization technique as appropriate and may include automated exposure control or mA/KV adjustment according to patient size. FINDINGS: Left-sided CMC complex fracture involving the left zygomatic arch which is comminuted, lat eral orbital wall involving the left orbit, and left maxillary sinus. The mandible is intact. No othe r fractures are identified. No orbital hematoma is identified. The globe is intact. Soft tissue swell ing is present overlying the left cheek. Trace maxillary sinus thickening bilaterally. IMPRESSION: Left zygomaticomaxillary complex fracture .
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
--- NOTE | 2021-04-17 12:25 | EDPHYS ---
Physician Documentation [facility] Name: Laurent Mahmood Jr Age: 31 yrs Sex: Male : 1990 Arrival Date: 04/17/2021 Time: : Bed 7 Private MD: ED Physician Car Ferreira HPI: 04/17 11:50 This 31 yrs old Black Male presents to ER via EMS with complaints of Head Injury With ma2 LOC-Adult. 11:50 The patient or guardian reports abrasion, injury, pain. The complaints affect the ma2 forehead, left ear and left eye. Onset: The symptoms/episode began/occurred suddenly, 12 hour(s) ago. Associated signs and symptoms: Pertinent negatives: patient denies any alcohol consumption, biting tongue, dazed, incontinence, nausea, neck pain, vomiting, weakness in extremities. Severity of symptoms: At their worst the symptoms were moderate, in the emergency department the symptoms are unchanged. The patient has not experienced similar symptoms in the past. Historical: - Allergies: 11:32 No Known Allergies; ap3 - Home Meds: 11:32 None [Active]; ap3 - PMHx: 11:32 Anxiety; Bipolar disorder; ap3 - Immunization history:: Adult Immunizations unknown. - Social history:: Smoking status: Patient denies any tobacco usage or history of. Patient uses alcohol. - Immunization history: Last tetanus immunization: unknown. - Family history:: not pertinent. ROS: 11:50 Constitutional: Negative for fever, chills, and weight loss. ma2 11:50 All other systems are negative. Exam: 11:50 Constitutional: This is a well developed, well nourished patient who is awake, alert, ma2 and in no acute distress. Eyes: Pupils equal round and reactive to light, extra-ocular motions intact. Lids and lashes normal. Conjunctiva and sclera are non-icteric and not injected. Cornea within normal limits. Periorbital areas with no swelling, redness, or edema. ENT: Nares patent. No nasal discharge, no septal abnormalities noted. Tympanic membranes are normal and external auditory canals are clear. Oropharynx with no redness, swelling, or masses, exudates, or evidence of obstruction, uvula midline. Mucous membranes moist. Neck: Trachea midline, no thyromegaly or masses palpated, and no cervical lymphadenopathy. Supple, full range of motion without nuchal rigidity, or vertebral point tenderness. No Meningismus. Chest/axilla: Normal chest wall appearance and motion. Nontender with no deformity. No lesions are appreciated. Cardiovascular: Regular rate and rhythm with a normal S1 and S2. No gallops, murmurs, or rubs. Normal PMI, no JVD. No pulse deficits. Respiratory: Lungs have equal breath sounds bilaterally, clear to auscultation and percussion. No rales, rhonchi or wheezes noted. No increased work of breathing, no retractions or nasal flaring. Abdomen/GI: Soft, non-tender, with normal bowel sounds. No distension or tympany. No guarding or rebound. No evidence of tenderness throughout. 11:50 Head/face: Noted is abrasion(s), contusion, of the forehead and left ear, ecchymosis, that is mild. Vital Signs: 11:29 BP 106 / 81; Pulse 85; Resp 18; Temp 97.8(TE); Pulse Ox 99% on R/A; Weight 65.77 kg; ap3 12:34 BP 102 / 72; Pulse 74; Resp 16; Pulse Ox 99% on R/A; ap3 Joseph Coma Score: 11:29 Eye Response: spontaneous(4). Verbal Response: oriented(5). Motor Response: obeys aa5 commands(6). Total: 15. Trauma Score (Adult): 11:29 Eye Response: spontaneous(1); Verbal Response: oriented(1); Motor Response: obeys aa5 commands(2); Systolic BP: > 89 mm Hg(4); Respiratory Rate: 10 to 29 per min(4); Devante Score: 15; Trauma Score: 12 MDM: 11:30 Patient medically screened. ma2 11:50 Differential diagnosis: Contusion of Hematoma on Concussion cerebral contusion. ma2 12:21 Data reviewed: vital signs, nurses notes. ma2 12:24 Counseling: I had a detailed discussion with the patient and/or guardian regarding: the ms2 historical points, exam findings, and any diagnostic results supporting the discharge/admit diagnosis, the presence of at least one elevated blood pressure reading (>120/80) during this emergency department visit, the need for outpatient follow up. Response to treatment: the patient's symptoms have markedly improved after treatment. 04/17 11:33 Order name: CT Head C Spine; Complete Time: 12:20 ma2 04/17 11:33 Order name: Facial Bones W/O Con CT; Complete Time: 12:20 ma2 Administered Medications: No medications were administered Disposition Summary: 04/17/21 12:24 Discharge Ordered Location: Home ma2 Condition: Stable ma2 Diagnosis - Fracture of malar, maxillary and zygoma bones - zygomatic complex fracture ma2 Followup: ma2 - With: Private Physician - When: Tomorrow - Reason: Continuance of care Discharge Instructions: - Discharge Summary Sheet ma2 - Zygoma Fracture ma2 Forms: - Medication Reconciliation Form ma2 - Thank You Letter ma2 - Antibiotic Education ma2 - Prescription Opioid Use ma2 Prescriptions: - Augmentin 875-125 mg Oral Tablet - take 1 tablet by ORAL route every 12 hours for 10 days; 20 tablet; Refills: 0, ma2 Product Selection Permitted - Diclofenac Sodium 75 mg Oral Tablet Sustained Release - take 1 tablet by ORAL route 2 times per day; 30 tablet; Refills: 0, Product ma2 Selection Permitted Signatures: Dispatcher [employer] EDCar Vale MD MD ma2 Venita Eden RN RN ap3
[2021-04-17 12:45] VITALS: TEMP 97.8; O2SAT 99
[2021-04-17 12:47] VITALS: BP 102/72
== END 2021-04-17 12:41 | disposition home or self-care (01) ==
LOC: ER 11:25
DX: S02.40FA Zygomatic fracture, left side, initial encounter for closed fracture (principal)
CPT/HCPCS: 70450; 70486; 72125; 76377; 99284

== ENCOUNTER 2021-06-02 21:11 | Emergency (ER) | payer SELFPAY ==
[2021-06-02 22:23] LABS: Urine Blood Negative (Negative); Urine Glucose Negative (Negative); Urine Protein Negative (Negative); Urine Specific Gravity >=1.030 (1.005-1.030)
[2021-06-02] MEDS ORDERED: WATER FOR INJ,STERILE 10 ML ONE (23:27)
[2021-06-02] MEDS ORDERED: IBUPROFEN 200 MG TAB PO ONE (23:27)
[2021-06-02] MEDS ORDERED: CEFTRIAXONE 1000 MG/VIAL ONE (23:27)
[2021-06-02] MEDS ORDERED: AZITHROMYCIN 250 MG TAB ONE (23:27)
[2021-06-02] MEDS ORDERED: IBUPROFEN 400 MG TAB ONE (23:27)
--- NOTE | 2021-06-02 23:28 | ER ---
Nurse's Notes [facility] Name: Laurent Mahmood Jr Age: 31 yrs Sex: Male : 1990 Arrival Date: 06/02/2021 Time: 21:14 Bed 11 Private MD: Diagnosis: Contusion of penis-and surrounding tissues Presentation: 06/02 21:31 Chief complaint: Patient states: right side abd pain after sex. Coronavirus screen: da3 Vaccine status: Patient reports receiving the 2nd dose of the covid vaccine. Ebola Screen: No symptoms or risks identified at this time. Initial Sepsis Screen: Does the patient meet any 2 criteria? No. Patient's initial sepsis screen is negative. Does the patient have a suspected source of infection? No. Patient's initial sepsis screen is negative. Risk Assessment: Do you want to hurt yourself or someone else? Patient reports no desire to harm self or others. Onset of symptoms was June 01, 2021 at 06:00. 21:31 Method Of Arrival: Ambulatory da3 21:31 Acuity: BECKY 3 da3 Triage Assessment: 21:31 General: Appears in no apparent distress. comfortable, Behavior is calm, cooperative. da3 21:31 Pain: Complains of pain in abdomen and pelvis Pain currently is 5 out of 10 on a pain da3 scale. Historical: - Allergies: 23:40 No Known Allergies; lp1 - Home Meds: 23:40 None [Active]; lp1 - PMHx: 23:40 Anxiety; Bipolar disorder; lp1 - PSHx: 23:40 Appendectomy; lp1 - Immunization history:: Client reports receiving the 2nd dose of the Covid vaccine. - Social history:: Smoking status: Patient reports the use of cigarette tobacco products, smokes one-half pack cigarettes per day. - Family history:: not pertinent. Screenin:15 Abuse screen: Denies threats or abuse. Denies injuries from another. Nutritional lp1 screening: No deficits noted. Tuberculosis screening: No symptoms or risk factors identified. Fall Risk None identified. Assessment: 22:15 General: Appears in no apparent distress. Behavior is appropriate for age. Pain: lp1 Complains of pain in right femoral area and right inguinal area Pain currently is 5 out of 10 on a pain scale. Is intermittent. Neuro: Level of Consciousness is awake, alert, obeys commands. Cardiovascular: Patient's skin is warm and dry. Respiratory: Respiratory effort is even, unlabored. GI: No signs and/or symptoms were reported involving the gastrointestinal system. : Reports burning with urination. EENT: No signs and/or symptoms were reported regarding the EENT system. Derm: Skin is intact, Skin is dry, Skin is normal. Musculoskeletal: No deficits noted. 22:41 Reassessment: Patient denies need for pain medication at this time. lp1 22:50 Reassessment: Ultrasound at bedside. lp1 Vital Signs: 21:31 BP 141 / 95; Pulse 84; Resp 18; Temp 99.1; Pulse Ox 100% on R/A; Weight 72.57 kg; da3 Height 6 ft. 1 in. (185.42 cm); 21:31 Body Mass Index 21.11 (72.57 kg, 185.42 cm) da3 ED Course: 21:14 Patient arrived in ED. es 21:31 Arm band placed on right wrist. da3 21:35 Triage completed. da3 22:13 Bisi Mckeon, RN is Primary Nurse. lp1 22:15 Patient has correct armband on for positive identification. lp1 22:21 Anthony Cota MD is Attending Physician. [facility] 23:40 No provider procedures requiring assistance completed. Patient did not have IV access lp1 during this emergency room visit. Administered Medications: 23:39 Drug: Rocephin (cefTRIAXone) 1 grams Route: IM; Site: left gluteus; lp1 23:41 Follow up: Response: Medication administered at discharge. lp1 23:40 Drug: Motrin (ibuprofen) 600 mg Route: PO; lp1 23:40 Follow up: Response: Medication administered at discharge. lp1 23:40 Drug: Zithromax (azithromycin) 1 grams Route: PO; lp1 23:41 Follow up: Response: Medication administered at discharge. lp1 Outcome: 23:28 Discharge ordered by . [facility] 23:40 Discharged to home ambulatory. lp1 23:40 Condition: good 23:40 Discharge instructions given to patient, Instructed on discharge instructions, follow up and referral plans. medication usage, Demonstrated understanding of instructions, follow-up care, medications, Prescriptions given X 2. 23:41 Patient left the ED. lp1 Signatures: Anthony Cota MD MD cha Salyer, Edna es Harsh Mckeona, RN RN lp1 Alirio Tucker, RN RN da3
--- NOTE | 2021-06-02 23:28 | EDPHYS ---
Physician Documentation [facility] Name: Laurent Mahmood Jr Age: 31 yrs Sex: Male : 1990 Arrival Date: 06/02/2021 Time: 21:14 Bed 11 Private MD: ED Physician Anthony Cota HPI: 06/02 23:23 This 31 yrs old Black Male presents to ER via Ambulatory with complaints of Groin Pain. odilon 23:23 The patient presents with swelling, tenderness, that is mild. Onset: The odilon symptoms/episode began/occurred just prior to arrival. Modifying factors: The symptoms are alleviated by nothing, the symptoms are aggravated by nothing. Associated signs and symptoms: The patient has no apparent associated signs or symptoms. Severity of symptoms: At their worst the symptoms were mild, in the emergency department the symptoms are unchanged. The patient has not experienced similar symptoms in the past. Historical: - Allergies: 23:40 No Known Allergies; lp1 - Home Meds: 23:40 None [Active]; lp1 - PMHx: 23:40 Anxiety; Bipolar disorder; lp1 - PSHx: 23:40 Appendectomy; lp1 - Immunization history:: Client reports receiving the 2nd dose of the Covid vaccine. - Social history:: Smoking status: Patient reports the use of cigarette tobacco products, smokes one-half pack cigarettes per day. - Family history:: not pertinent. ROS: 23:23 Constitutional: Negative for fever, chills, and weight loss, Eyes: Negative for injury, odilon pain, redness, and discharge, ENT: Negative for injury, pain, and discharge, Neck: Negative for injury, pain, and swelling, Cardiovascular: Negative for chest pain, palpitations, and edema, Respiratory: Negative for shortness of breath, cough, wheezing, and pleuritic chest pain, Abdomen/GI: Negative for abdominal pain, nausea, vomiting, diarrhea, and constipation, : Negative for injury, bleeding, discharge, and swelling, MS/Extremity: Negative for injury and deformity, Skin: Negative for injury, rash, and discoloration, Neuro: Negative for headache, weakness, numbness, tingling, and seizure, Psych: Negative for depression, anxiety, suicide ideation, homicidal ideation, and hallucinations, Allergy/Immunology: Negative for hives, rash, and allergies, Endocrine: Negative for neck swelling, polydipsia, polyuria, polyphagia, and marked weight changes, Hematologic/Lymphatic: Negative for swollen nodes, abnormal bleeding, and unusual bruising. 23:23 : Positive for injury or acute deformity, of the groin and right femoral area. Exam: 23:23 Constitutional: This is a well developed, well nourished patient who is awake, alert, odilon and in no acute distress. Head/Face: Normocephalic, atraumatic. Eyes: Pupils equal round and reactive to light, extra-ocular motions intact. Lids and lashes normal. Conjunctiva and sclera are non-icteric and not injected. Cornea within normal limits. Periorbital areas with no swelling, redness, or edema. ENT: Nares patent. No nasal discharge, no septal abnormalities noted. Tympanic membranes are normal and external auditory canals are clear. Oropharynx with no redness, swelling, or masses, exudates, or evidence of obstruction, uvula midline. Mucous membranes moist. Neck: Trachea midline, no thyromegaly or masses palpated, and no cervical lymphadenopathy. Supple, full range of motion without nuchal rigidity, or vertebral point tenderness. No Meningismus. Chest/axilla: Normal chest wall appearance and motion. Nontender with no deformity. No lesions are appreciated. Cardiovascular: Regular rate and rhythm with a normal S1 and S2. No gallops, murmurs, or rubs. Normal PMI, no JVD. No pulse deficits. Respiratory: Lungs have equal breath sounds bilaterally, clear to auscultation and percussion. No rales, rhonchi or wheezes noted. No increased work of breathing, no retractions or nasal flaring. Abdomen/GI: Soft, non-tender, with normal bowel sounds. No distension or tympany. No guarding or rebound. No evidence of tenderness throughout. Back: No spinal tenderness. No costovertebral tenderness. Full range of motion. Skin: Warm, dry with normal turgor. Normal color with no rashes, no lesions, and no evidence of cellulitis. MS/ Extremity: Pulses equal, no cyanosis. Neurovascular intact. Full, normal range of motion. Neuro: Awake and alert, GCS 15, oriented to person, place, time, and situation. Cranial nerves II-XII grossly intact. Motor strength 5/5 in all extremities. Sensory grossly intact. Cerebellar exam normal. Normal gait. Psych: Awake, alert, with orientation to person, place and time. Behavior, mood, and affect are within normal limits. 23:23 : CVA tenderness, is absent, Male external genitalia: Patient is not circumisioned. Bladder: is normal, Rectal exam: is not applicable, Sexual behavior: the patient is sexually active, and reports a single partner. Vital Signs: 21:31 BP 141 / 95; Pulse 84; Resp 18; Temp 99.1; Pulse Ox 100% on R/A; Weight 72.57 kg; da3 Height 6 ft. 1 in. (185.42 cm); 21:31 Body Mass Index 21.11 (72.57 kg, 185.42 cm) da3 MDM: 22:21 Patient medically screened. odilon 23:25 Differential diagnosis: nonspecific abdominal pain, UTI, prostatitis, urethritis. Data odilon reviewed: vital signs, nurses notes, lab test result(s), urinalysis. Data interpreted: hall monitor: not applicable for this patient encounter. rate is 84 beats/min, rhythm is regular, Pulse oximetry: on room air is 100 %. Counseling: I had a detailed discussion with the patient and/or guardian regarding: the historical points, exam findings, and any diagnostic results supporting the discharge/admit diagnosis, lab results, the need for outpatient follow up, for definitive care, a family practitioner. 06/02 22:22 Order name: Urine Dipstick-Ancillary; Complete Time: 23:22 EDMS 06/02 23:22 Interpretation: Within normal limits. odilon 06/02 22:22 Order name: Urine Dipstick-Ancillary (obtain specimen); Complete Time: 22:22 odilon Administered Medications: 23:39 Drug: Rocephin (cefTRIAXone) 1 grams Route: IM; Site: left gluteus; lp1 23:41 Follow up: Response: Medication administered at discharge. lp1 23:40 Drug: Motrin (ibuprofen) 600 mg Route: PO; lp1 23:40 Follow up: Response: Medication administered at discharge. lp1 23:40 Drug: Zithromax (azithromycin) 1 grams Route: PO; lp1 23:41 Follow up: Response: Medication administered at discharge. lp1 Disposition Summary: 06/02/21 23:28 Discharge Ordered Location: Home odilon Problem: new odilon Symptoms: have improved odilon Condition: Stable [facility] Diagnosis - Contusion of penis - and surrounding tissues odilon Followup: [facility] - With: Private Physician - When: 2 - 3 days - Reason: Recheck today's complaints, Continuance of care, Re-evaluation by your physician Discharge Instructions: - Discharge Summary Sheet [facility] - Preventing Sexually Transmitted Infections, Adult [facility] Forms: - Medication Reconciliation Form [facility] - Thank You Letter [facility] - Antibiotic Education [facility] - Prescription Opioid Use [facility] Prescriptions: - Ibuprofen 600 mg Oral Tablet - take 1 tablet by ORAL route every 6 hours As needed take with food; 20 tablet; odilon Refills: 0, Product Selection Permitted - Doxycycline Hyclate 100 mg Oral Tablet - take 1 tablet by ORAL route every 12 hours; 20 tablet; Refills: 0, Product [facility] Selection Permitted Signatures: Dispatcher [employer] EDMS Anthony Cota MD MD cha Pena, Laura, RN RN lp1 Alirio Tucker, RN RN da3 Corrections: (The following items were deleted from the chart) 22:30 22:24 Urine --Ancillary ordered. EDMS EDMS 23:00 22:30 Scrotum Testicles+US.RAD.[email or web address] ordered. EDMS EDMS
[2021-06-02 23:47] VITALS: BP 141/95; TEMP 99.1; O2SAT 100
== END 2021-06-02 23:41 | disposition home or self-care (01) ==
LOC: ER 21:11
DX: S30.21XA Contusion of penis, initial encounter (principal); F17.210 Nicotine dependence, cigarettes, uncomplicated
CPT/HCPCS: 81003; 96372; 99283

== ENCOUNTER 2021-09-28 21:17 | Emergency (ER) | payer SELFPAY ==
[2021-09-28] MEDS ORDERED: IBUPROFEN 400 MG TAB ONE (22:49)
[2021-09-28] MEDS ORDERED: ACETAMINOPHEN 325 MG TABLET ONE (22:49)
[2021-09-28] MEDS ORDERED: LIDOCAINE 1% W/EPI 1:100,000 MDV 50 ML VIAL ONE (22:50)
[2021-09-28] MEDS ORDERED: TETANUS & DIPHTHERIA TOX,ADULT 0.5 ML VIAL ONE (22:52)
--- NOTE | 2021-09-29 00:04 | ER ---
Nurse's Notes [facility] Name: Laurent Mahmood Jr Age: 31 yrs Sex: Male : 1990 Arrival Date: 09/28/2021 Time: 21:19 Bed 12 Private MD: Diagnosis: Laceration without foreign body of left elbow Presentation: 09/28 22:18 Chief complaint: Patient states: States was cutting a log and the chain saw cut Left ll3 elbow, states happened around 6:30. Coronavirus screen: At this time, the client does not indicate any symptoms associated with coronavirus-19. Ebola Screen: No symptoms or risks identified at this time. Complicating Factors: There are no complicating factors for this patient. Initial Sepsis Screen: Does the patient meet any 2 criteria? No. Patient's initial sepsis screen is negative. Does the patient have a suspected source of infection? No. Patient's initial sepsis screen is negative. Risk Assessment: Do you want to hurt yourself or someone else? Patient reports no desire to harm self or others. Onset of symptoms was September 28, 2021 at 18:30. Mechanism of Injury: Laceration sustained from Chain saw Injury was accidental. 22:18 Method Of Arrival: Ambulatory ll3 22:18 Acuity: BECKY 3 ll3 Triage Assessment: 22:23 General: Appears uncomfortable, Behavior is calm, cooperative. Pain: Denies pain. ll3 Injury Description: Laceration sustained to left elbow is jagged, not bleeding. Historical: - Allergies: 22:23 No Known Allergies; ll3 - PMHx: 22:23 Anxiety; Bipolar disorder; ll3 - PSHx: 22:23 Appendectomy; ll3 - Immunization history:: Client reports receiving the 2nd dose of the Covid vaccine, Flu vaccine is not up to date. - Social history:: Smoking status: Patient reports the use of cigarette tobacco products, denies chronic smoking, but will smoke occasionally. Screenin:59 Abuse screen: Denies threats or abuse. Denies injuries from another. Nutritional as6 screening: No deficits noted. Tuberculosis screening: No symptoms or risk factors identified. Fall Risk None identified. Assessment: 22:58 General: Appears in no apparent distress. Derm: drsg to left arm. Musculoskeletal: as6 Reports pain in left antecubital area. Injury Description: Laceration sustained to left arm. 23:46 Reassessment: Patient appears in no apparent distress at this time. Patient and/or jb4 family updated on plan of care and expected duration. Pain level reassessed. Patient is alert, oriented x 3, equal unlabored respirations, skin warm/dry/pink. 09/29 00:24 Reassessment: Patient appears in no apparent distress at this time. Patient and/or jb4 family updated on plan of care and expected duration. Pain level reassessed. Patient is alert, oriented x 3, equal unlabored respirations, skin warm/dry/pink. Vital Signs: 09/28 22:18 BP 133 / 60; Pulse 92; Resp 18; Temp 98.7(TE); Pulse Ox 100% ; Weight 65.77 kg (M); ll3 Height 6 ft. 1 in. (185.42 cm) (R); 22:57 BP 126 / 85; Pulse 75; Resp 18 S; Pulse Ox 98% on R/A; as6 22:18 Body Mass Index 19.13 (65.77 kg, 185.42 cm) ll3 ED Course: 21:19 Patient arrived in ED. ag3 21:54 Anthony Pederson PA is PHCP. cp 21:54 Home Boggs MD is Attending Physician. cp 22:23 Triage completed. ll3 22:23 Arm band placed on right wrist. ll3 22:25 Javier Guajardo, ALESIA is Primary Nurse. as6 22:57 XRAY Elbow LEFT 3 view In Process Unspecified. EDMS 22:59 Bed in low position. Call light in reach. Side rails up X 1. Adult w/ patient. Pulse ox as6 on. NIBP on. 09/29 00:24 Assist provider with laceration repair on left elbow. Patient did not have IV access jb4 during this emergency room visit. 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 Exp: as6 08/29/2023. Lot #: [id number]. } Route: IM; Site: right deltoid; 23:47 Drug: Lidocaine-Epinephrine -1%: (1:100,000) 10 ml {Note: Administered by ER provider.} jb4 Volume: 20 ml; Route: Infiltration; Outcome: 09/29 00:03 Discharge ordered by . diego 00:24 Discharged to home ambulatory, with family. jb4 00:24 Condition: stable 00:24 Discharge instructions given to patient, family, Instructed on discharge instructions, follow up and referral plans. medication usage, wound care, Demonstrated understanding of instructions, follow-up care, medications, wound care, Prescriptions given X 2. 00:25 Patient left the ED. jb4 Signatures: Dispatcher [employer] EDMS Anthony Pederson PA PA cp Bryson, James RN RN jb4 Yue Cho Ashby, RN RN as6 Bony Jorgensen RN RN ll3
--- NOTE | 2021-09-29 00:04 | EDPHYS ---
Physician Documentation [facility] Name: Laurent Mahmood Jr Age: 31 yrs Sex: Male : 1990 Arrival Date: 09/28/2021 Time: 21:19 Bed 12 Private MD: TYRA Physician Home Boggs HPI: 09/28 22:30 This 31 yrs old Black Male presents to ER via Ambulatory with complaints of Laceration cp To Arm. 22:30 The patient has a laceration related to: using chainsaw occurred at work. The cp laceration(s) is(are) located on the left elbow. Onset: The symptoms/episode began/occurred today. Associated signs and symptoms: The patient has no apparent associated signs or symptoms. Historical: - Allergies: 22:23 No Known Allergies; ll3 - PMHx: 22:23 Anxiety; Bipolar disorder; ll3 - PSHx: 22:23 Appendectomy; ll3 - Immunization history:: Client reports receiving the 2nd dose of the Covid vaccine, Flu vaccine is not up to date. - Social history:: Smoking status: Patient reports the use of cigarette tobacco products, denies chronic smoking, but will smoke occasionally. ROS: 22:35 Constitutional: Negative for body aches, chills, fever. cp 22:35 Respiratory: Negative for cough, shortness of breath, wheezing. 22:35 Abdomen/GI: Negative for abdominal pain, nausea, vomiting, and diarrhea. 22:35 Skin: Positive for laceration(s), of the left elbow. 22:35 Neuro: Negative for altered mental status, headache, numbness, weakness. 22:35 All other systems are negative. Exam: 22:40 Constitutional: The patient appears in no acute distress, alert, awake, non-toxic, well cp developed, well nourished, uncomfortable. 22:40 Head/Face: Normocephalic, atraumatic. cp 22:40 Cardiovascular: Rate: normal, Pulses: Pulses are 2+ in left radial artery. 22:40 Respiratory: the patient does not display signs of respiratory distress, Respirations: normal, no use of accessory muscles, no retractions. 22:40 Abdomen/GI: Exam negative for discomfort, distension, guarding, Inspection: abdomen appears normal. 22:40 Back: pain, is absent, ROM is normal. 22:40 Musculoskeletal/extremity: ROM: full active range of motion, in the left elbow, Sensation intact. 22:40 Skin: injury, avulsion(s), a small of the left elbow, laceration(s), of the left elbow, that can be described as clean, no foreign body, irregular, jagged, with mild bleeding. 22:40 Neuro: Orientation: to person, place \T\ time. Mentation: is normal, Motor: moves all fours, strength is normal, Sensation: no obvious gross deficits. Vital Signs: 22:18 BP 133 / 60; Pulse 92; Resp 18; Temp 98.7(TE); Pulse Ox 100% ; Weight 65.77 kg (M); ll3 Height 6 ft. 1 in. (185.42 cm) (R); 22:57 BP 126 / 85; Pulse 75; Resp 18 S; Pulse Ox 98% on R/A; as6 22:18 Body Mass Index 19.13 (65.77 kg, 185.42 cm) ll3 Laceration: 23:58 Wound Repair of 7cm ( 2.8in ) subcutaneous laceration to medial aspect of left elbow. cp Irregularly shaped.. Skin/tissue flap noted.. Distal neuro/vascular/tendon intact. Anesthesia: Wound infiltrated with 7 mls of 1% lidocaine w/ Epi. Wound prep: Moderate cleansing by me, Wound irrigation by me. Skin closed with 5 5-0 Prolene using simple sutures and sterile technique. Dressed with Bacitracin, 4x4's. Patient tolerated well. MDM: 22:26 Patient medically screened. cp 23:00 Differential diagnosis: superficial laceration, tendon injury, vascular injury, open cp fracture. 23:00 ED course: xrays of left elbow negative for fracture. cp 09/29 00:02 Data reviewed: vital signs, nurses notes, radiologic studies, plain films. cp 00:02 Test interpretation: by ED physician or midlevel provider: plain radiologic studies. cp Counseling: I had a detailed discussion with the patient and/or guardian regarding: the historical points, exam findings, and any diagnostic results supporting the discharge/admit diagnosis, radiology results, the need for outpatient follow up, a family practitioner, to return to the emergency department if symptoms worsen or persist or if there are any questions or concerns that arise at home. Response to treatment: the patient's symptoms have markedly improved after treatment, and as a result, I will discharge patient. 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 Exp: as6 08/29/2023. Lot #: [id number]. } Route: IM; Site: right deltoid; 23:47 Drug: Lidocaine-Epinephrine -1%: (1:100,000) 10 ml {Note: Administered by ER provider.} jb4 Volume: 20 ml; Route: Infiltration; Disposition: 09/29 01:23 Co-signature as Attending Physician, Home Boggs MD. [email or web address] Disposition Summary: 09/29/21 00:03 Discharge Ordered Location: Home cp Problem: new cp Symptoms: have improved cp Condition: Stable cp Diagnosis - Laceration without foreign body of left elbow cp Followup: cp - With: Private Physician - When: 10 - 14 days - Reason: Staple/Suture removal Discharge Instructions: - Discharge Summary Sheet cp - Laceration Care, Adult cp Forms: - Medication Reconciliation Form cp - Thank You Letter cp - Antibiotic Education cp - Prescription Opioid Use cp Prescriptions: - Cephalexin 500 mg Oral Capsule - take 1 capsule by ORAL route every 8 hours for 10 days; 30 capsule; Refills: 0, cp Product Selection Permitted - Ibuprofen 800 mg Oral Tablet - take 1 tablet by ORAL route every 8 hours As needed take with food; 30 tablet; cp Refills: 0, Product Selection Permitted Signatures: Dispatcher [employer] EDME Anthony Pederson PA PA cp Don Peters RN RN jb4 Home Boggs MD MD mh7 Javier Guajardo RN RN as6 Loubet, Lynsea, RN RN ll3 Corrections: (The following items were deleted from the chart) 16:03 16:02 Skin: Positive for laceration(s), of the left elbow, cp cp 16: 16:02 Constitutional: Negative for body aches, chills, fever, cp cp 16: 16:02 Respiratory: Negative for cough, shortness of breath, wheezing, cp cp 16: 16:02 Abdomen/GI: Negative for abdominal pain, nausea, vomiting, and diarrhea, cp cp 16: 16:02 Neuro: Negative for altered mental status, headache, numbness, weakness, cp cp 16: 16:02 All other systems are negative, cp cp
[2021-09-29 10:20] VITALS: TEMP 98.7
[2021-09-29 10:21] VITALS: BP 126/85; O2SAT 98
--- NOTE | 2021-09-29 15:36 | RAD REPORT ---
EXAM DESCRIPTION: RAD - Elbow Left 3 View - 09/28/2021 10:55 pm CLINICAL HISTORY: 31 years Male laceration;Pain TECHNIQUE: Three views of the left elbow. COMPARISON: No prior exams provided for comparison. FINDINGS: There is no acute left elbow fracture, dislocation, or joint effusion. Joint spaces appear normal. There are no aggressive osseous lesions. IMPRESSION: No acute findings in the left elbow. Electronically signed by: Cely Zarate MD 09/28/2021 11:14 PM CDT Due to temporary technical issues with the PACS/Fluency reporting system, reports are being signed by the in house radiologists without review as a courtesy to insure prompt reporting. The interpreting radiologist is fully responsible for the content of the report.
== END 2021-09-29 00:25 | disposition home or self-care (01) ==
LOC: ER 21:17
PROC: 0JQH0ZZ Repair Left Lower Arm Subcutaneous Tissue and Fascia, Open Approach (ICD-10-PCS; principal; 2021-09-29)
DX: S51.012A Laceration without foreign body of left elbow, initial encounter (principal); W29.3XXA Contact with powered garden and outdoor hand tools and machinery, initial encounter; Y92.89 Other specified places as the place of occurrence of the external cause; Y99.8 Other external cause status; Z23 Encounter for immunization; F31.9 Bipolar disorder, unspecified; F17.210 Nicotine dependence, cigarettes, uncomplicated
CPT/HCPCS: 90471; 90714; 99284

== ENCOUNTER 2021-10-13 18:01 | Emergency (ER) | payer SELFPAY ==
--- NOTE | 2021-10-13 18:38 | EDPHYS ---
Physician Documentation [facility] Name: Laurent Mahmood Jr Age: 31 yrs Sex: Male : 1990 Arrival Date: 10/13/2021 Time: 18:02 Bed 12 Private MD: ED Physician Migue Ferrer HPI: 10/13 18:30 This 31 yrs old Black Male presents to ER via Ambulatory with complaints of Suture cp Removal. 18:30 The patient has sutures on the left elbow. Previous treatment: the care was rendered at [facility], Treatment type: The patient's original treatment included sutures. Sutures/dima progress: The patient has no c/o's. The wound is well-healing with no redness, swelling, discharge, or dehiscence reported. Historical: - PMHx: 18:22 Anxiety; Bipolar disorder; vg1 - PSHx: 18:22 Appendectomy; vg1 - Immunization history:: Adult Immunizations up to date. - Social history:: Smoking status: Patient denies any tobacco usage or history of. Patient/guardian denies using alcohol. ROS: 18:30 Constitutional: Negative for body aches, chills, fever. cp 18:30 Cardiovascular: Negative for chest pain. 18:30 Respiratory: Negative for cough, shortness of breath, wheezing. 18:30 Abdomen/GI: Negative for abdominal pain, nausea, vomiting, and diarrhea. 18:30 Skin: Positive for of the left elbow, repaired laceration. 18:30 All other systems are negative. Exam: 18:33 Constitutional: The patient appears in no acute distress, alert, awake, non-toxic, well cp developed, well nourished. 18:33 Skin: Wound recheck: Suture laceration closure: the wound is healing well, no drainage, cp no erythema, no swelling, mild dehiscence. Vital Signs: 18:20 BP 112 / 70; Pulse 76; Resp 16; Temp 98.6; Pulse Ox 98% ; Weight 63.5 kg; Height 6 ft. vg1 0 in. (182.88 cm); Pain 0/10; 18:28 BP 118 / 72; Pulse 71; Resp 17; Pulse Ox 99% on R/A; Pain 0/10; ld1 18:20 Body Mass Index 18.99 (63.50 kg, 182.88 cm) vg1 Procedures: 18:40 Suture/Staple removal: Removed 5 sutures, from left elbow, site appears well healed, cp Patient tolerated well. MDM: 18:22 Patient medically screened. cp 18:37 Data reviewed: vital signs, nurses notes. cp 18:37 Counseling: I had a detailed discussion with the patient and/or guardian regarding: the cp historical points, exam findings, and any diagnostic results supporting the discharge/admit diagnosis, to return to the emergency department if symptoms worsen or persist or if there are any questions or concerns that arise at home. Response to treatment: the patient's symptoms have markedly improved after treatment, and as a result, I will discharge patient. Administered Medications: No medications were administered Disposition Summary: 10/13/21 18:37 Discharge Ordered Location: Home cp Problem: new cp Symptoms: have improved cp Condition: Stable cp Diagnosis - Encounter for removal of sutures cp Followup: cp - With: Private Physician - When: As needed - Reason: Worsening of condition Discharge Instructions: - Discharge Summary Sheet cp - Suture Removal, Care After cp - How to Minimize Scarring After Surgery cp Forms: - Medication Reconciliation Form cp - Thank You Letter cp - Antibiotic Education cp - Prescription Opioid Use cp Signatures: Anthony Pederson PA PA cp Светлана Johnson, RN RN vg1 Janelle Mendoza RN RN ld1
--- NOTE | 2021-10-13 18:38 | ER ---
Nurse's Notes [facility] Name: Laurent Mahmood Jr Age: 31 yrs Sex: Male : 1990 Arrival Date: 10/13/2021 Time: 18:02 Bed 12 Private MD: Diagnosis: Encounter for removal of sutures Presentation: 10/13 18:20 Chief complaint: Patient states: Was seen about 14 days ago for laceration to right vg1 elbow and needs sutures removed. Ebola Screen: Patient denies exposure to infectious person. Patient denies travel to an Ebola-affected area in the 21 days before illness onset. Initial Sepsis Screen: Does the patient meet any 2 criteria? No. Patient's initial sepsis screen is negative. Does the patient have a suspected source of infection? No. Patient's initial sepsis screen is negative. Risk Assessment: Do you want to hurt yourself or someone else? Patient reports no desire to harm self or others. Onset of symptoms was September 29, 2021. 18:20 Method Of Arrival: Ambulatory vg1 18:20 Acuity: BECKY 5 vg1 18:42 Coronavirus screen: At this time, the client does not indicate any symptoms associated ld1 with coronavirus-19. Triage Assessment: 18:22 General: Appears in no apparent distress. comfortable, Behavior is calm, cooperative. vg1 Pain: Denies pain. Historical: - PMHx: 18:22 Anxiety; Bipolar disorder; vg1 - PSHx: 18:22 Appendectomy; vg1 - Immunization history:: Adult Immunizations up to date. - Social history:: Smoking status: Patient denies any tobacco usage or history of. Patient/guardian denies using alcohol. Screenin:28 Abuse screen: Denies threats or abuse. Denies injuries from another. Nutritional ld1 screening: No deficits noted. Tuberculosis screening: No symptoms or risk factors identified. Fall Risk None identified. Assessment: 18:28 General: Appears in no apparent distress. comfortable, Behavior is calm, cooperative, ld1 appropriate for age. Pain: Denies pain. Neuro: Level of Consciousness is awake, alert, obeys commands, Oriented to person, place, time, situation. Cardiovascular: Capillary refill < 3 seconds Patient's skin is warm and dry. Respiratory: Airway is patent Respiratory effort is even, unlabored. GI: Abdomen is flat, non-distended. : No signs and/or symptoms were reported regarding the genitourinary system. EENT: No signs and/or symptoms were reported regarding the EENT system. Derm: sutures to left elbow. Musculoskeletal: No signs and/or symptoms reported regarding the musculoskeletal system. Vital Signs: 18:20 BP 112 / 70; Pulse 76; Resp 16; Temp 98.6; Pulse Ox 98% ; Weight 63.5 kg; Height 6 ft. vg1 0 in. (182.88 cm); Pain 0/10; 18:28 BP 118 / 72; Pulse 71; Resp 17; Pulse Ox 99% on R/A; Pain 0/10; ld1 18:20 Body Mass Index 18.99 (63.50 kg, 182.88 cm) vg1 ED Course: 18:02 Patient arrived in ED. ds1 18:03 Anthony Pederson PA is PHCP. cp 18:03 Migue Ferrer MD is Attending Physician. diego 18:14 Janelle Mendoza, RN is Primary Nurse. ld1 18:22 Triage completed. vg1 18:22 Arm band placed on. vg1 18:28 Patient has correct armband on for positive identification. Bed in low position. Call ld1 light in reach. Side rails up X2. Pulse ox on. NIBP on. Door closed. Noise minimized. Warm blanket given. 18:28 No provider procedures requiring assistance completed. Patient did not have IV access ld1 during this emergency room visit. Administered Medications: No medications were administered Outcome: 18:20 No charge visit due to suture removal. ld1 18:37 Discharge ordered by . cp 18:42 Discharged to home ambulatory. ld1 18:42 Condition: stable 18:42 Discharge instructions given to patient, Instructed on discharge instructions, follow up and referral plans. Demonstrated understanding of instructions, follow-up care. 18:42 Patient left the ED. ld1 Signatures: Lidia eMdel ds1 Anthony Pederson PA PA cp Garcia, Victoria, RN RN vg1 Janelle Mendoza, ALESIA RN ld1
[2021-10-13 21:22] VITALS: TEMP 98.6
[2021-10-13 21:23] VITALS: BP 118/72; O2SAT 99
== END 2021-10-13 18:42 | disposition home or self-care (01) ==
LOC: ER 18:01
DX: Z48.02 Encounter for removal of sutures (principal)

== ENCOUNTER 2022-05-27 23:25 | Emergency (ER) | payer SELFPAY ==
--- NOTE | 2022-05-28 00:15 | ER ---
Nurse's Notes [facility] Name: Laurent Mahmood Jr Age: 32 yrs Sex: Male : 1990 Arrival Date: 05/27/2022 Time: 23:29 Bed Treatment Private MD: Diagnosis: Insect bite (nonvenomous) of front wall of thorax Presentation: 05/27 23:35 Chief complaint: Stung by unknown insect on right chest 2 nights ago, c/o pain 8/10. hb Coronavirus screen: At this time, the client does not indicate any symptoms associated with coronavirus-19. Ebola Screen: No symptoms or risks identified at this time. Initial Sepsis Screen: Does the patient meet any 2 criteria? No. Patient's initial sepsis screen is negative. Does the patient have a suspected source of infection? No. Patient's initial sepsis screen is negative. Risk Assessment: Do you want to hurt yourself or someone else? Patient reports no desire to harm self or others. Onset of symptoms was May 25, 2022. 23:35 Method Of Arrival: Ambulatory 23:35 Acuity: BECKY 4 hb Triage Assessment: 05/28 00:45 Bite description: by an unknown animal, animal information: vaccination(s) is not tw5 applicable. General: Appears in no apparent distress. Behavior is calm, cooperative, appropriate for age. Historical: - Allergies: 05/27 23:37 No Known Allergies; hb - PMHx: 23:37 Anxiety; Bipolar disorder; hb - PSHx: 23:37 Appendectomy; hb - Immunization history:: Adult Immunizations up to date. - Social history:: Smoking status: Patient reports the use of cigarette tobacco products, smokes one-half pack cigarettes per day. Screenin/09 00:43 Abuse screen: Denies threats or abuse. Denies injuries from another. Nutritional tw5 screening: No deficits noted. Tuberculosis screening: No symptoms or risk factors identified. Fall Risk None identified. Assessment: 00:43 General: Reports "This little bit hurts". Pain: Pain currently is 8 out of 10 on a pain tw5 scale. Derm: Skin is intact, is healthy with good turgor, Skin is normal, pinprint spot noted on the right side of chest. No swelling or redness seen. Patient laughing and talking on phone. No apparent distress. Vital Signs: 1208 23:35 BP 154 / 84; Pulse 74; Resp 16; Temp 98.2; Pulse Ox 100% on R/A; Weight 65.77 kg; hb Height 6 ft. 1 in. (185.42 cm); Pain 8/10; 23:35 Body Mass Index 19.13 (65.77 kg, 185.42 cm) hb ED Course: 23:29 Patient arrived in ED. jj6 23:36 Triage completed. hb 23:37 Arm band placed on. hb 23:49 Lydia Cancnio is Primary Nurse. tw5 23:51 Maryse Jo PA-C is PHCP. sb4 23:51 Anthony Cota MD is Attending Physician. sb4 12 00:43 Patient has correct armband on for positive identification. tw5 00:43 No provider procedures requiring assistance completed. Patient did not have IV access tw5 during this emergency room visit. Administered Medications: 00:43 Drug: Ibuprofen 800 mg Route: PO; tw5 00:43 Follow up: Response: No adverse reaction; Medication administered at discharge. tw5 Medication: 00:43 VIS not applicable for this client. tw5 Outcome: 00:14 Discharge ordered by . sb4 00:43 Discharged to home ambulatory. tw5 00:43 Condition: good 00:43 Discharge instructions given to patient, Instructed on discharge instructions, follow up and referral plans. medication usage, Demonstrated understanding of instructions, follow-up care, medications, Prescriptions given X 1. 00:45 Patient left the ED. tw5 Signatures: Jeni Sosa RN ALESIA Lydia Cancino tw5 Patricia Garcia jj6 Maryse Jo PA-C PA-C sb4
--- NOTE | 2022-05-28 00:15 | EDPHYS ---
Physician Documentation [facility] Name: Laurent Mahmood Jr Age: 32 yrs Sex: Male : 1990 Arrival Date: 05/27/2022 Time: 23:29 Bed Treatment Private MD: ED Physician Anthony Cota HPI: 05/28 00:23 This 32 yrs old Black Male presents to ER via Ambulatory with complaints of Insect Bite.sb4 00:23 Onset: The symptoms/episode began/occurred 2 day(s) ago. Patient reports he believes he sb4 felt something "bite" him 2 nights ago. States he tried to "pop" it and some clear and bloody fluid came out. He reports 8/10 pain. He has not tried any home remedies. . Historical: - Allergies: 05/27 23:37 No Known Allergies; hb - PMHx: 23:37 Anxiety; Bipolar disorder; hb - PSHx: 23:37 Appendectomy; hb - Immunization history:: Adult Immunizations up to date. - Social history:: Smoking status: Patient reports the use of cigarette tobacco products, smokes one-half pack cigarettes per day. ROS: 05/28 00:23 Constitutional: Negative for fever, chills, and weight loss, Eyes: Negative for injury, sb4 pain, redness, and discharge, ENT: Negative for injury, pain, and discharge, Cardiovascular: Negative for chest pain, palpitations, and edema, Respiratory: Negative for shortness of breath, cough, wheezing, and pleuritic chest pain, Abdomen/GI: Negative for abdominal pain, nausea, vomiting, diarrhea, and constipation, MS/Extremity: Negative for injury and deformity. Skin: Positive for insect bite. 00:23 Skin: Positive for insect bite, pain. sb4 Exam: 00:23 Constitutional: This is a well developed, well nourished patient who is awake, alert, sb4 and in no acute distress. Head/Face: Normocephalic, atraumatic. Cardiovascular: Regular rate and rhythm with a normal S1 and S2. Respiratory: Lungs have equal breath sounds bilaterally, clear to auscultation and percussion. No rales, rhonchi or wheezes noted. No increased work of breathing, no retractions or nasal flaring. Abdomen/GI: Soft, non-tender, no distension. MS/ Extremity: Pulses equal, no cyanosis. Neurovascular intact. Full, normal range of motion. 00:23 Skin: lesion(s), noted, and can be described as flat, tender, located on the chest, pin point sized lesion with a small head. no erythema, drainage, redness, surrounding cellulitus . Vital Signs: 05/27 23:35 BP 154 / 84; Pulse 74; Resp 16; Temp 98.2; Pulse Ox 100% on R/A; Weight 65.77 kg; hb Height 6 ft. 1 in. (185.42 cm); Pain 8/10; 23:35 Body Mass Index 19.13 (65.77 kg, 185.42 cm) hb MDM: 23:51 Patient medically screened. sb4 05/28 00:23 Data reviewed: vital signs, nurses notes, and as a result, I will discharge patient. sb4 Administered Medications: 00:43 Drug: Ibuprofen 800 mg Route: PO; tw5 00:43 Follow up: Response: No adverse reaction; Medication administered at discharge. tw5 Disposition Summary: 05/28/22 00:14 Discharge Ordered Location: Home sb4 Problem: new sb4 Symptoms: have improved sb4 Condition: Stable sb4 Diagnosis - Insect bite (nonvenomous) of front wall of thorax sb4 Followup: sb4 - With: Private Physician - When: As needed - Reason: Worsening of condition, Recheck today's complaints, Re-evaluation by your physician Discharge Instructions: - Discharge Summary Sheet sb4 - Insect Bite, Adult, [id number] sb4 Forms: - Medication Reconciliation Form sb4 - Thank You Letter sb4 - Antibiotic Education sb4 - Prescription Opioid Use sb4 Prescriptions: - Ibuprofen 600 mg Oral Tablet - take 1 tablet by ORAL route every 6 hours As needed take with food; 30 tablet; sb4 Refills: 0, Product Selection Permitted Signatures: Jeni Sosa, RN RN Lydia Jerez tw5 Maryse Jo PA-C PA-C sb4
[2022-05-28] MEDS ORDERED: IBUPROFEN 400 MG TAB ONE (00:41)
[2022-05-28 02:29] VITALS: BP 154/84; TEMP 98.2; O2SAT 100
== END 2022-05-28 00:45 | disposition home or self-care (01) ==
LOC: ER 23:25
DX: S20.369A Insect bite (nonvenomous) of unspecified front wall of thorax, initial encounter (principal); F17.210 Nicotine dependence, cigarettes, uncomplicated
CPT/HCPCS: 99283

== ENCOUNTER 2022-06-18 07:07 | Emergency (ER) | payer SELFPAY ==
--- NOTE | 2022-06-18 08:55 | RAD REPORT ---
EXAM DESCRIPTION: RAD - Knee Right 3 View - 06/18/2022 8:30 am CLINICAL HISTORY: PAINfollowing a fall COMPARISON: <Comparisons>None. FINDINGS: No fracture, dislocation or periosteal reaction.No joint effusion seen. No joint space radha rowing. No foreign body or other soft tissue abnormality. IMPRESSION: Negative right knee. Clinical concerns for internal derangement or occult bony injury could be further assessed with MR im aging.
--- NOTE | 2022-06-18 09:00 | ER ---
Nurse's Notes [facility] Name: Laurent Mahmood Jr Age: 32 yrs Sex: Male : 1990 Arrival Date: 06/18/2022 Time: 07:10 Bed 12 Private MD: Diagnosis: Pain in right knee Presentation: 06/18 08:20 Chief complaint: Patient states: right knee pain since Tuesday. Coronavirus screen: At iw this time, the client does not indicate any symptoms associated with coronavirus-19. Ebola Screen: Patient negative for fever greater than or equal to 101.5 degrees Fahrenheit, and additional compatible Ebola Virus Disease symptoms Patient denies exposure to infectious person. Patient denies travel to an Ebola-affected area in the 21 days before illness onset. No symptoms or risks identified at this time. Initial Sepsis Screen: Does the patient meet any 2 criteria? No. Patient's initial sepsis screen is negative. Does the patient have a suspected source of infection? No. Patient's initial sepsis screen is negative. Risk Assessment: Do you want to hurt yourself or someone else? Patient reports no desire to harm self or others. Onset of symptoms was June 14, 2022. 08:20 Method Of Arrival: Ambulatory iw 08:20 Acuity: BECKY 4 iw Triage Assessment: 09:00 General: Appears in no apparent distress. Behavior is calm, cooperative. iw Historical: - Allergies: 08:20 No Known Allergies; iw - PMHx: 08:20 Anxiety; Bipolar disorder; iw - PSHx: 08:20 Appendectomy; iw - Immunization history:: Adult Immunizations. - Family history:: not pertinent. - Social history:: Smoking status: . - Hospitalizations: : No recent hospitalization is reported. Screenin:00 [facility] ED Fall Risk Assessment (Adult) History of falling in the last 3 months, iw including since admission. Abuse screen: Denies threats or abuse. Denies injuries from another. Nutritional screening: No deficits noted. Tuberculosis screening: No symptoms or risk factors identified. Assessment: 09:00 General: Appears in no apparent distress. Behavior is calm, cooperative. Pain: iw Complains of pain in right knee. Neuro: Level of Consciousness is awake, alert, obeys commands, Oriented to person, place, time, situation, Moves all extremities. Full function. Cardiovascular: Patient's skin is warm and dry. Respiratory: Respiratory effort is even, unlabored, Respiratory pattern is regular, symmetrical. Vital Signs: 07:44 BP 130 / 94; Pulse 78; Resp 16; Temp 99.2(O); Pulse Ox 98% ; Weight 68.04 kg; Height 6 mm9 ft. 1 in. (185.42 cm); 07:44 Body Mass Index 19.79 (68.04 kg, 185.42 cm) mm9 ED Course: 07:10 Patient arrived in ED. tw5 07:12 Migue Ferrer MD is Attending Physician. rn 07:32 Mariel Spencer RN is Primary Nurse. iw 07:45 Patient has correct armband on for positive identification. Bed in low position. Call mm9 light in reach. Pulse ox on. NIBP on. 08:20 Triage completed. iw 08:32 XRAY Knee RIGHT 3 view In Process Unspecified. EDMS 09:00 No provider procedures requiring assistance completed. Patient did not have IV access iw during this emergency room visit. 09:07 Darryl wrap to right knee. mm9 Administered Medications: No medications were administered Medication: 09:00 VIS not applicable for this client. iw Outcome: 08:59 Discharge ordered by . rn 09:08 Discharged to home ambulatory, with family. iw 09:08 Condition: good 09:08 Discharge instructions given to patient, family, Instructed on discharge instructions, follow up and referral plans. Demonstrated understanding of instructions, follow-up care. 09:09 Patient left the ED. mm9 Signatures: Dispatcher [employer] EDNM Mariel Spencer, ALESIA DUMAS Migue Ferrer MD MD rn Wood, Tiffany tw5 Anabelle Castaneda mm9
--- NOTE | 2022-06-18 09:00 | EDPHYS ---
Physician Documentation [facility] Name: Laurent Mahmood Jr Age: 32 yrs Sex: Male : 1990 Arrival Date: 06/18/2022 Time: 07:10 Bed 12 Private MD: ED Physician Migue Ferrer HPI: 06/18 08:26 This 32 yrs old Black Male presents to ER via Ambulatory with complaints of Knee Pain. rn 08:26 The patient presents with an injury, pain. The complaints affect the right knee. Onset: rn The symptoms/episode began/occurred 5 day(s) ago. Modifying factors: The symptoms are alleviated by remaining still, the symptoms are aggravated by movement, weight bearing, bending knee. Associated signs and symptoms: Pertinent negatives calf tenderness, fever, numbness, swelling, weakness. Severity of symptoms: At their worst the symptoms were mild, in the emergency department the symptoms are unchanged. The patient has not experienced similar symptoms in the past. The patient has not recently seen a physician. Pt reports thinks fell or twisted knee 5 days ago, doesn't remember exact details of injury. Ambulatory. NO swelling. No fever. Reports hurts a little. . Historical: - Allergies: 08:20 No Known Allergies; iw - PMHx: 08:20 Anxiety; Bipolar disorder; iw - PSHx: 08:20 Appendectomy; iw - Immunization history:: Adult Immunizations. - Family history:: not pertinent. - Social history:: Smoking status: . - Hospitalizations: : No recent hospitalization is reported. ROS: 08:26 Constitutional: Negative for fever, chills, and weight loss, Eyes: Negative for injury, rn pain, redness, and discharge, Cardiovascular: Negative for chest pain, palpitations, and edema, Respiratory: Negative for shortness of breath, cough, wheezing, and pleuritic chest pain, Abdomen/GI: Negative for abdominal pain, nausea, vomiting, diarrhea, and constipation, Back: Negative for injury and pain, MS/Extremity: + right knee pain Exam: 08:26 Constitutional: This is a well developed, well nourished patient who is awake, alert, rn and in no acute distress. Cardiovascular: Regular rate and rhythm. No pulse deficits. Skin: Warm, dry with normal turgor. Normal color with no rashes, no lesions, and no evidence of cellulitis. MS/ Extremity: Pulses equal, no cyanosis. Neurovascular intact. Full, normal range of motion. Equal circumference. Neuro: Awake and alert, GCS 15. Motor strength 5/5 in all extremities. Sensory grossly intact. Vital Signs: 07:44 BP 130 / 94; Pulse 78; Resp 16; Temp 99.2(O); Pulse Ox 98% ; Weight 68.04 kg; Height 6 mm9 ft. 1 in. (185.42 cm); 07:44 Body Mass Index 19.79 (68.04 kg, 185.42 cm) mm9 MDM: 07:12 Patient medically screened. rn 08:58 Differential diagnosis: closed fracture, tendonitis, sprain, internal derangement of rn knee. Data reviewed: vital signs, nurses notes, radiologic studies, plain films, and as a result, I will discharge patient. Counseling: I had a detailed discussion with the patient and/or guardian regarding: the historical points, exam findings, and any diagnostic results supporting the discharge/admit diagnosis, radiology results, the need for outpatient follow up, to return to the emergency department if symptoms worsen or persist or if there are any questions or concerns that arise at home. Response to treatment: There is no appreciated change of the patient's symptoms at this time, and as a result, I will discharge patient. Special discussion: I discussed with the patient/guardian in detail that at this point there is no indication for admission to the hospital. It is understood, however, that if the symptoms persist or worsen the patient needs to return immediately for re-evaluation. Further emergent ED testing is not indicated at this point in time. I discussed with the patient/guardian in detail the need to arrange with the PCP or specialist further outpatient testing, MRI. 06/18 07:42 Order name: XRAY Knee RIGHT 3 view; Complete Time: 08:58 rn Administered Medications: No medications were administered Disposition Summary: 06/18/22 08:59 Discharge Ordered Location: Home rn Problem: new rn Symptoms: have improved rn Condition: Stable rn Diagnosis - Pain in right knee rn Followup: rn - With: Private Physician - When: As needed - Reason: Recheck today's complaints, Re-evaluation by your physician Discharge Instructions: - Discharge Summary Sheet rn - Acute Knee Pain, Adult rn Forms: - Medication Reconciliation Form rn - Thank You Letter rn - Antibiotic furnace brazer - Prescription Opioid Use rn Signatures: Dispatcher [employer] Mariel Arredondo RN RN iw Nieto, Roman, MD MD rn
[2022-06-18 09:13] VITALS: BP 130/94; TEMP 99.2; O2SAT 98
== END 2022-06-18 09:09 | disposition home or self-care (01) ==
LOC: ER 07:07
DX: M25.561 Pain in right knee (principal)
CPT/HCPCS: 99283